=== PATIENT | male | born 1975 | race Caucasian/White ===

== ENCOUNTER 2018-09-15 17:16 | Observation (INO) ==
--- NOTE | 2018-09-15 17:29 | Emergency Department Note ---
ED Disposition Clinical Impression: Abdominal pain Disposition: Still a Patient Condition on Discharge: Fair Instructions: DI for Diarrhea and Traveler's Diarrhea -- Adult, DI for Diarrhea and Traveler's Diarrhea -- Child, DI for Nausea -- Adult, DI for Nausea -- Child - Critical Care Critical Care Time: No Attestation: On , the high probability of a clinically significant, sudden or life threatening deterioration of the following system(s) required my full and direct attention, intervention and personal management. The time I documented below is in addition to time spent performing reported procedures but includes the following listed in this critical care notation. Medical Decision Making - Fernie Inquiry Pt receiving controlled substance: No Fernie was queried for this patient: No Vital Signs: 09/15/18 17:19 Temperature 97.8 F Temperature Source Oral Pulse Rate [Right Brachial] 49 L Respiratory Rate 20 Blood Pressure [Right Arm] 141/84 H Blood Pressure Mean [Right Arm] 103 Blood Pressure Source [Right Arm] Automatic Cuff Blood Pressure Position [Right Arm] Sitting 02 Sat by Pulse Oximetry 99 Oxygen Delivery Method Room Air - Lab Data Lab Results 09/15/18 17:25: WBC 9.8, RBC 5.47, Hgb 15.6, Hct 48.4, MCV 88.4, MCH 28.6, MCHC 32.3, RDW 12.7, Plt Count 209, MPV 7.6, Neut % (Auto) 86.1 H, Lymph % (Auto) 8.1 L, [place] % (Auto) 4.6, Eos % (Auto) 0.8, Baso % (Auto) 0.5, Neut # (Auto) 8.4 H, Lymph # (Auto) 0.8, [place] # (Auto) 0.5, Eos # (Auto) 0.1, Baso # (Auto) 0.1, Total Counted 100, Neutrophils % (Manual) 85 H, Lymphocytes % (Manual) 8 L, Monocytes % (Manual) 5, Eosinophils % (Manual) 2, Platelet Estimate Normal, RBC Morphology Normal 09/15/18 17:25: Sodium 140, Potassium 4.4, Chloride 103, Carbon Dioxide 30, Anion Gap 11.4, BUN 7, Creatinine 0.85, Estimated Creat Clear 141, Estimated GFR 97, Est GFR ( Amer) 118, Glucose 111 H, Calcium 9.9, Total Bilirubin 0.3, AST 28, ALT 39, Alkaline Phosphatase 84, Total Creatine Kinase 101, CK-MB (CK-2) 0.8, CK-MB (CK-2) Rel Index 0.8, Troponin I < 0.02, Total Protein 8.3 H, Albumin 4.3, Globulin 4.0 H, Albumin/Globulin Ratio 1.1, Amylase 66, Lipase 88, Plasma/Serum Alcohol 0 Result diagrams: 09/15/18 17:25 09/15/18 17:25 Orders (Tests/Meds): ED MEDICATIONS Generic Name Dose Route Start Last Admin Trade Name Freq PRN Reason Stop Dose Admin Sodium Chloride 10 ml 09/15/18 17:25 09/15/18 17:42 Saline Flush 10ml Syringe IV 10/15/18 17:24 10 ml NEEDED PRN Administration Maintain IV Site Discontinued Medications Generic Name Dose Route Start Last Admin Trade Name Freq PRN Reason Stop Dose Admin Diatrizoate Meglum/Diatrizoate Sod 30 ml 09/15/18 17:24 09/15/18 17:42 Gastrografin 66%-10% 30ml PO 09/15/18 17:25 30 ml ONCE ONE Administration Famotidine 20 mg 09/15/18 17:25 09/15/18 17:42 Pepcid 20mg/2ml Vial IV 09/15/18 17:26 20 mg ONCE ONE Administration Ioversol 75 ml 09/15/18 18:53 09/15/18 18:54 Rad-Optiray 350 100ml Vial IV 09/15/18 18:54 75 ml ONCE ONE Administration Protocol Morphine Sulfate 2 mg 09/15/18 17:25 09/15/18 17:42 Morphine 2mg/Ml Syringe IV 09/15/18 17:26 2 mg ONCE ONE Administration Ondansetron HCl 4 mg 09/15/18 17:25 09/15/18 17:42 Zofran 4mg/2ml Vial IV 09/15/18 17:26 4 mg ONCE ONE Administration Sodium Chloride 8 ml 09/15/18 17:25 09/15/18 17:42 Saline Flush 10ml Syringe IV 09/15/18 17:26 8 ml ONCE ONE Administration Sodium Chloride 10 ml 09/15/18 18:53 09/15/18 18:54 Rad-Saline Flush 10ml Syringe IV 09/15/18 18:54 10 ml ONCE ONE Administration ORDERS Category Date Time Status CT abdomen pelvis w con Stat Cat Scan 09/15/18 17:24 Taken Drug Screen,Urine Stat Lab 09/15/18 17:23 Ordered Drug Screen,Urine Stat Lab 09/15/18 20:05 Ordered Urinalysis and Microscopic Stat Lab 09/15/18 17:23 Ordered Urinalysis and Microscopic Stat Lab 09/15/18 20:05 Ordered Medical Decision Narrative: Patient remained hemodynamically stable his UA and CT scan reports were pending. Incoming physician Dr. Valero will follow up and make a disposition. Abdominal Pain HPI - General Chief Complaint: Nausea/Vomiting/Diarrhea Stated Complaint: NAUSEA/VOMITING/ABD CRAMPS Time Seen by Provider: 09/15/18 17:26 Mode of Arrival: EMS Source of Information: Patient Limitations: No Limitations - History of Present Illness HPI narrative: 43 years old white male who denies past medical or surgical history. Today at 8 AM, he claims that he started developing mid abdominal cramping pain associated with dry heaving without diarrhea. He denies having chest pain back pain hematemesis coffee-ground emesis melanotic stool or bleeding per rectum. He denies having dysuria hematuria or frequency. He denies having flank pain or hemoptysis. The pain progressively gotten worse was unable to have oral intake and urinated twice. MD complaint: abdominal pain Onset (ago): hour(s) (> 8 hours) Consistency: constant Severity: severe Severity scale (1-10): 10 Quality: cramping Radiation: none Relieving factors: eating Exacerbating factors: nothing Associated symptoms: nausea - Related Data Allergies Allergy/AdvReac Type Severity Reaction Status Date / Time No Known Allergies Allergy Verified 08/20/18 21:44 [facility] History - Hepatitis A Screen Attestation statement:: This patient has been screened for Hepatitis A risk factors. I have reviewed the patient's past medical history: Yes Medical History: Denies:: Cancer, Diabetes Mellitus Type 1, Diabetes Mellitus Type 2, MRSA Amputation: No Fractures: No - Social History Smoking Status: Current every day smoker Tobacco Type: cigarettes # Packs/Day (cigarettes): 1 Alcohol Intake: never Occupational Status: employed Housing: house ROS Obtained: Yes All systems reviewed & no additional complaints Physical Exam - General General appearance: alert, in no apparent distress - Head Head exam: atraumatic, normocephalic, normal inspection - Eye Eye exam: Present: normal appearance, PERRL, EOMI. Absent: scleral icterus, nystagmus - ENT ENT exam: Present: normal exam, normal oropharynx, mucous membranes moist, TM's normal bilaterally, normal external ear exam - Neck Neck exam: Present: normal inspection, full ROM, trachea midline. Absent: tenderness, meningismus, lymphadenopathy - Chest Chest inspection: Present: normal inspection, symmetric chest wall rise. Absent: tenderness - Respiratory Respiratory exam: Present: normal lung sounds bilaterally. Absent: respiratory distress, wheezes - Cardiovascular Cardiovascular exam: Present: regular rate, normal rhythm, normal heart sounds. Absent: JVD - Abdominal Exam Abdominal exam: Present: soft, tenderness, guarding, rigidity, normal bowel sounds, other (Patient had flat abdomen, diffuse abdominal tenderness and voluntary guarding and rigidity.). Absent: distention, rebound, West's sign, tenderness at McBurney's Point - exam: Present: normal inspection, normal testicular lie, circumcised. Absent: testicular tenderness, urethral discharge, scrotal swelling - Extremities Exam Extremities exam: Present: normal inspection, full ROM, normal capillary refill. Absent: tenderness, pedal edema, joint swelling, calf tenderness - Back Exam Back exam: Present: normal inspection. Absent: tenderness, CVA tenderness (R), CVA tenderness (L) - Neurological Exam Neurological exam: Present: alert, oriented X3, CN II-XII intact, motor sensory deficit, reflexes normal - Psychiatric Psychiatric exam: Present: normal affect, normal mood - Skin Skin exam: Present: warm, dry, intact, normal color, other (Scars of prior IV drug use over the left AC. ) - Lymphatic Lymphatic Findings: no adenopathy
[2018-09-15 17:52] LABS: Basophils # 0.1 K/mm3 (0-0.2); Basophils % 0.5 % (0.1-2.0); Eosinophils # 0.1 K/mm3 (0.0-0.4); Eosinophils % 0.8 % (0.1-12.0); Hematocrit 48.4 % (42.0-52.0); Hemoglobin 15.6 g/dL (14.1-18.0); Lymphocytes # 0.8 K/mm3 (0.7-4.5); Lymphocytes % 8.1 % (10-50); Mean Corpuscular HGB Conc 32.3 g/dL (31.8-35.4); Mean Corpuscular Volume 88.4 fl (80-94); Mean Platelet Volume 7.6 fl (7.4-10.4); Monocytes # 0.5 K/mm3 (0.1-1.0); Monocytes % 4.6 % (1.7-9.3); Neutrophils # 8.4 K/mm3 (1.8-7.8); Neutrophils % 86.1 % (37.0-80.0); Platelet Count 209 K/mm3 (142-424); Red Blood Count 5.47 M/mm3 (4.60-6.20); Red Cell Distribution Width 12.7 % (11.5-17.5); White Blood Count 9.8 K/mm3 (4.8-10.8)
[2018-09-15 18:15] LABS: Alanine Aminotransferase 39 U/L (12-78); Albumin Level 4.3 gm/dL (3.4-5.0); Albumin/Globulin Ratio 1.1 (1.1-1.8); Alkaline Phosphatase 84 U/L (46-116); Amylase 66 U/L (25-115); Anion Gap 11.4 mEq/L (5-15); Aspartate Amino Transferase 28 U/L (15-37); Bilirubin,Total 0.3 mg/dL (0.2-1.0); Blood Urea Nitrogen 7 mg/dL (7-18); Calcium 9.9 mg/dL (8.5-10.1); Carbon Dioxide 30 mmol/L (21.0-32.0); Chloride 103 mmol/L (98-107); Creatine Kinase 101 U/L (39-308); Ethyl Alcohol 0 mg/dL (0-99); Glucose 111 mg/dL (74-106); Sodium 140 mmol/L (136-145); Total Protein,Serum 8.3 gm/dL (6.4-8.2)
[2018-09-15 18:22] LABS: Eosinophils % 2 % (0-3); Lymphocytes % 8 % (10-50); Monocytes % 5 % (2-9); Neutrophils % 85 % (42-76); RBC Morphology Normal; Total Cells Counted 100
[2018-09-15 20:58] LABS: Microscopic, Urine URINE MICROSCOPIC (MICROSCOPIC)
[2018-09-15 21:03] LABS: Appearance,Urine CLEAR (Clear); Bilirubin,Urine Negative (Negative); Blood, Urine Negative (Negative); Color,Urine YELLOW (Yellow); Glucose,Urine (UA) Negative (Negative); Ketones,Urine Negative (Negative); Leukocyte Esterase,Urine Negative (Negative); Protein,Urine Negative (Negative); Urobilinogen,Urine 0.2 EU/dl (0.2)
[2018-09-15 21:09] LABS: Amorphous Sediment,Urine Trace /lpf; Amphetamine/Metha Screen,Urine Negative ng/mL (<1000); Barbiturates Screen,Urine Negative ng/mL (<200); Benzodiazepines Screen,Urine Negative ng/mL (<200); Cannabinoid Screen,Urine Positive ng/mL (<50); Cocaine Screen,Urine Negative ng/mL (<300); Methadone Screen,Urine Negative ng/mL (<300); Mucus,Urine 2+ /lpf; Opiate Screen,Urine Positive ng/mL (<300); Phencyclidine Screen,Urine Negative ng/mL (<25)
[2018-09-16 06:30] LABS: Basophils % 0.6 % (0.1-2.0); Eosinophils # 0.3 K/mm3 (0.0-0.4); Eosinophils % 4.8 % (0.1-12.0); Hematocrit 41.4 % (42.0-52.0); Lymphocytes # 1.9 K/mm3 (0.7-4.5); Mean Corpuscular HGB Conc 32.1 g/dL (31.8-35.4); Mean Corpuscular Volume 87.8 fl (80-94); Mean Platelet Volume 7.7 fl (7.4-10.4); Monocytes # 0.4 K/mm3 (0.1-1.0); Monocytes % 6.3 % (1.7-9.3); Neutrophils % 54.3 % (37.0-80.0); Platelet Count 181 K/mm3 (142-424); Red Blood Count 4.71 M/mm3 (4.60-6.20); Red Cell Distribution Width 12.8 % (11.5-17.5); White Blood Count 5.6 K/mm3 (4.8-10.8)
[2018-09-16 06:31] LABS: Hemoglobin 13.3 g/dL (14.1-18.0)
[2018-09-16 06:39] LABS: Anion Gap 11.3 mEq/L (5-15)
[2018-09-16 06:56] LABS: Calcium 8.8 mg/dL (8.5-10.1)
--- NOTE | 2018-09-16 08:51 | History & Physical Report ---
*Admission Date: 09/16/18 *Chief complaint: abdominal pain *History of present illness: Gerardo is a 43-year-old white male who has generally been healthy. He has no history of GI problems. He presented to the emergency room last evening with a approximately 12-hour history of fairly abrupt onset of periumbilical cramping abdominal pain associated with nausea but no vomiting. Throughout the day the pain progressively worsened and he developed persistent diarrhea. No fever. No blood in his stool. He finally presented to the emergency room last evening. Work-up showed relatively normal laboratory data. CT scan of the abdomen however was remarkable for apparent localized ileitis. He was subsequent admitted for bowel rest, IV fluids, and pain management. This morning he is still having fairly persistent periumbilical cramping abdominal pain. His diarrhea has slowed but not resolved. He feels hungry but is also nauseated. No vomiting. [facility] History Medical History: Denies:: Cancer, Diabetes Mellitus Type 1, Diabetes Mellitus Type 2, Gall Bladder Disease, Gastroesophageal Reflux Disease(GERD), Gastrointestinal Bleed, Hiatal Hernia, Kidney Stones, MRSA, Ulcer *Have you ever received a pneumonia vaccine?: No *Have you received a flu vaccine this season?: No (Didn't get it, hasn't had in the past) Other Surgeries: Yes: No Previous Surgery Amputation: No Fractures: No - *Social History Educational Level: Attended High School Smoking Status: Former smoker Tobacco Type: cigarettes # Packs/Day (cigarettes): 1 #Yrs smoked (if former smoker): 20 Smoking End Date: 2016 Alcohol Intake: never Substance Use Type: denies use (But drug screen positive for opiates and marijuana) *Occupational Status:: employed Housing: house Household Members: family *Travel in the last 8 weeks: None - Psychiatric History Expresses thoughts of harming self/others: None Suicide Plan Description: No Plan Family Hx:: Heart Attack Review of Systems - Constitutional Denies body ache(s), Denies fever(s), Denies weight loss - Eyes Denies blurry vision, Denies double vision - ENT Denies difficulty swallowing, Denies hearing loss, Denies nasal congestion - *Cardiovascular Denies chest pain, Denies shortness of breath, Denies leg swelling - *Respiratory Denies chest congestion, Denies cough, Denies shortness of breath - *Gastrointestinal Reports abdominal pain (See HPI) - *Genitourinary Denies difficulty urinating, Denies painful urination, Denies blood in urine - *Musculoskeletal Denies joint pain, Denies joint swelling, Denies body aches - Integumentary/Breasts Denies rash - *Neurologic Denies dizziness - Psychiatric Denies anxiety, Denies depression - Endocrine Denies flushing - Hematologic/Lymphatic Denies easy bruising - Allergic/Immunologic Denies itchy eyes, Denies seasonal runny nose Meds Home Medications Medication Instructions Recorded Confirmed Type No Known Home Medications 09/15/18 09/15/18 History Allergies Allergy/AdvReac Type Severity Reaction Status Date / Time No Known Allergies Allergy Verified 08/20/18 21:44 Exam Vital signs and Labs for Last 24 Hours: Temp Pulse Resp BP Pulse Ox 98.0 F 46 L 16 122/79 99 09/16/18 08:00 09/16/18 08:00 09/16/18 08:00 09/16/18 08:00 09/16/18 08:00 Laboratory Results - last 24 hr 09/15/18 17:25: WBC 9.8, RBC 5.47, Hgb 15.6, Hct 48.4, MCV 88.4, MCH 28.6, MCHC 32.3, RDW 12.7, Plt Count 209, MPV 7.6, Neut % (Auto) 86.1 H, Lymph % (Auto) 8.1 L, Angelina % (Auto) 4.6, Eos % (Auto) 0.8, Baso % (Auto) 0.5, Neut # (Auto) 8.4 H, Lymph # (Auto) 0.8, Angelina # (Auto) 0.5, Eos # (Auto) 0.1, Baso # (Auto) 0.1, Total Counted 100, Neutrophils % (Manual) 85 H, Lymphocytes % (Manual) 8 L, Monocytes % (Manual) 5, Eosinophils % (Manual) 2, Platelet Estimate Normal, RBC Morphology Normal 09/15/18 17:25: Sodium 140, Potassium 4.4, Chloride 103, Carbon Dioxide 30, Anion Gap 11.4, BUN 7, Creatinine 0.85, Estimated Creat Clear 141, Estimated GFR 97, Est GFR ( Amer) 118, Glucose 111 H, Calcium 9.9, Total Bilirubin 0.3, AST 28, ALT 39, Alkaline Phosphatase 84, Total Creatine Kinase 101, CK-MB (CK-2) 0.8, CK-MB (CK-2) Rel Index 0.8, Troponin I < 0.02, Total Protein 8.3 H, Albumin 4.3, Globulin 4.0 H, Albumin/Globulin Ratio 1.1, Amylase 66, Lipase 88, Plasma/Serum Alcohol 0 09/15/18 20:45: Urine Color Yellow, Urine Appearance Clear, Urine pH 6.0, Ur Specific [place] 1.010, Urine Protein Negative, Urine Glucose (UA) Negative, Urine Ketones Negative, Urine Blood Negative, Urine Nitrate Negative, Urine Bilirubin Negative, Urine Urobilinogen 0.2, Ur Leukocyte Esterase Negative, Urine WBC 3-5, Amorphous Sediment Trace, Urine Mucus 2+ 09/15/18 20:45: Urine Opiates Screen Positive H, Urine Methadone Screen Negative, Ur Barbituates Screen Negative, Ur Phencyclidine Scrn Negative, Ur Amphetamines Screen Negative, U Benzodiazepines Scrn Negative, Urine Cocaine Screen Negative, U Marijuana (THC) Screen Positive H 09/16/18 06:10: WBC 5.6 D, RBC 4.71, Hgb 13.3 L D, Hct 41.4 L, MCV 87.8, MCH 28.2, MCHC 32.1, RDW 12.8, Plt Count 181, MPV 7.7, Neut % (Auto) 54.3, Lymph % (Auto) 34.0, Angelina % (Auto) 6.3, Eos % (Auto) 4.8, Baso % (Auto) 0.6, Neut # (Auto) 3.0, Lymph # (Auto) 1.9, Angelina # (Auto) 0.4, Eos # (Auto) 0.3, Baso # (Auto) 0.0 09/16/18 06:10: Sodium 142, Potassium 3.3 L D, Chloride 106, Carbon Dioxide 28, Anion Gap 11.3, BUN 8, Creatinine 0.62 L D, Estimated Creat Clear 172, Estimated GFR 140, Est GFR ( Amer) 170 D, Glucose 103, Calcium 8.8 D I & O for Last 24 hours: Intake & Output 09/13/18 09/14/18 09/15/18 09/16/18 11:59 11:59 11:59 11:59 Intake Total 877 / 877 Balance 877 / 877 Weight 178 lb Narrative: He is lying in bed and appears uncomfortable with his abdominal pain. No acute distress. He is alert and oriented. Color is normal. HEENT shows a cream to be atraumatic and normocephalic. Sclera and conjunctive are clear. Nares patent. Oropharynx show moist mucous membranes. Lungs are clear to auscultation. Heart is regular with no murmurs or ectopy. Abdomen is thin soft and nondistended. Bowel sounds are present but diminished. There is mild to moderate periumbilical and right lower quadrant tenderness. No rebound or guarding. Extremities show no edema. Assessment and Plan (1) Terminal ileitis Current visit: Yes Status: Acute Category: Medical Code(s): K50.00 - Crohn's disease of small intestine without complications - Assessment and plan all Dx Assessment and Plan for all problems:: CT scan is consistent with distal small bowel enteritis or ileitis. This is presumed to be infectious based on his negative GI history. His white blood count remains normal and he is afebrile. He will be started on IV Levaquin e mpirically. We will also add steroids. Continue IV fluids. Will advance to clear liquid diet. Additional work-up and treatment will be as indicated by his hospital course.
--- NOTE | 2018-09-16 10:14 | Pharmacy Consult Notes ---
[facility] Pharmacy VTE Monitoring - Patient Demographics Admission date: 09/16/18 Report Date: 09/16/18 Time: 10:13 Allergies/Adverse Reactions: Patient Allergies No Known Allergies Allergy (Verified 08/20/18 21:44) Height: 1.88 m Weight: 80.739 kg Patient Problems: Current Active Problems (Updated 09/15/18 @ 20:08 by Leia Waterman MD) Abdominal pain (Acute) - VTE Risk Labs: VTE Related Lab Results Hgb 13.3 g/dL (14.1-18.0) L D 09/16/18 06:10 Hct 41.4 % (42.0-52.0) L 09/16/18 06:10 Plt Count 181 K/mm3 (142-424) 09/16/18 06:10 BUN 8 mg/dL (7-18) 09/16/18 06:10 Creatinine 0.62 mg/dL (0.70-1.30) L D 09/16/18 06:10 Estimated Creat Clear 172 mL/min (50-200) 09/16/18 06:10 VTE Score: 1 VTE Risk Level: Very Low Risk - Prophylaxis Types of VTE Prophylaxis: TEDS Knee High (GEREMIAS HOSE ORDER PLACED)
--- NOTE | 2018-09-17 08:18 | Progress Note ---
Internal Medicine - PN: Subj *Date: 09/17/18 *Time: 08:15 Interval history: Feels a little better. Still with stomach cramps but only had 2 diarrhea stools yesterday. Did not collect stool sample. Tolerating clear liquids. Exam Vital signs and Labs for Last 24 Hours: Temp Pulse Resp BP Pulse Ox 98.1 F 50 L 17 144/75 H 97 09/17/18 07:18 09/17/18 07:18 09/17/18 07:18 09/17/18 07:18 09/17/18 07:18 I & O for Last 24 hours: Intake & Output 09/14/18 09/15/18 09/16/18 09/17/18 11:59 11:59 11:59 11:59 Intake Total 1027 / 1027 3498 / 3498 Balance 1027 / 1027 3498 / 3498 Weight 178 lb 185 lb 3 oz - Constitutional no acute distress - *Routine Respiratory Exam Present: CTA bilaterally - *Routine Cardiovascular Exam Present: RRR - *Routine Abdominal Exam Present: soft. Absent: distended (BS present, mild RLQ tenderness) Assessment and Plan (1) Terminal ileitis Current visit: Yes Status: Acute Category: Medical Code(s): K50.00 - Crohn's disease of small intestine without complications - Assessment and plan all Dx Assessment and Plan for all problems:: Clinically improved. Still awaiting stool sample. Will advance diet.
--- NOTE | 2018-09-18 08:43 | Progress Note ---
<Farrah Wang - Last Filed: 09/18/18 08:40> Internal Medicine - PN: Subj *Date: 09/18/18 *Time: 07:55 Interval history: Pt is not feeling well this morning. He reports nausea and "dry heaves" for most of the night and is currently sitting up in bed holding emesis bag. He describes generalized abdominal cramping, moreso in the bilateral lower quads. He denies any diarrhea or loose stools. Exam Vital signs and Labs for Last 24 Hours: Temp Pulse Resp BP Pulse Ox 98.0 F 50 L 15 145/75 H 98 09/18/18 07:40 09/18/18 07:40 09/18/18 07:40 09/18/18 07:40 09/18/18 07:40 I & O for Last 24 hours: Intake & Output 09/15/18 09/16/18 09/17/18 09/18/18 11:59 11:59 11:59 11:59 Intake Total 1027 / 1027 3498 / 3498 3427 / 3427 Balance 1027 / 1027 3498 / 3498 3427 / 3427 Weight 178 lb 185 lb 3 oz 179 lb - Constitutional Comments: NAD, appears uncomfortable as he is sitting up in bed holding emesis bag - *Routine HEENT Exam Head: Present: normocephalic ENT: Present: mucous membranes moist - *Routine Respiratory Exam Comments: CTAB A&P - *Routine Cardiovascular Exam Present: RRR - *Routine Abdominal Exam Comments: BS present x 4, soft, diffusely ttp throughout - *Routine Extremities Exam Present: full ROM, pulses intact, calf tenderness. Absent: edema - *Routine Neurological Exam Present: alert, oriented X3, moving all extremities, normal speech Assessment and Plan (1) Terminal ileitis Current visit: Yes Status: Acute Category: Medical Code(s): K50.00 - Crohn's disease of small intestine without complications - Assessment and plan all Dx Assessment and Plan for all problems:: Further per Dr. Sevilla. <Duncan Sevilla - Last Filed: 09/18/18 13:59> Internal Medicine - PN: Subj *Date: 09/18/18 *Time: 13:57 Exam Vital signs and Labs for Last 24 Hours: Temp Pulse Resp BP Pulse Ox 98.0 F 50 L 15 145/75 H 98 09/18/18 07:40 09/18/18 07:40 09/18/18 07:40 09/18/18 07:40 09/18/18 07:40 Laboratory Results - last 24 hr 09/18/18 09:20: WBC 15.1 H D, RBC 5.02, Hgb 14.2, Hct 44.0, MCV 87.5, MCH 28.3, MCHC 32.3, RDW 12.9, Plt Count 198, MPV 7.4, Neut % (Auto) 91.1 H, Lymph % (Auto) 5.5 L, [place] % (Auto) 3.4, Eos % (Auto) 0.1, Baso % (Auto) 0.0 L, Neut # (Auto) 13.8 H, Lymph # (Auto) 0.8, [place] # (Auto) 0.5, Eos # (Auto) 0.0, Baso # (Auto) 0.0 09/18/18 09:20: Sodium 141, Potassium 4.5 D, Chloride 103, Carbon Dioxide 29, Anion Gap 13.5, BUN 14 D, Creatinine 0.80 D, Estimated Creat Clear 134, Estimated GFR 105, Est GFR ( Amer) 126 D, Glucose 141 H, Calcium 9.4, Total Bilirubin 0.3, AST 20 D, ALT 30, Alkaline Phosphatase 69, Total Protein 7.1, Albumin 3.6, Globulin 3.5 H, Albumin/Globulin Ratio 1.0 L, Amylase 39 I & O for Last 24 hours: Intake & Output 09/16/18 09/17/18 09/18/18 09/19/18 11:59 11:59 11:59 11:59 Intake Total 1027 / 1027 3648 / 3648 3427 / 3427 Balance 1027 / 1027 3648 / 3648 3427 / 3427 Weight 178 lb 185 lb 3 oz 179 lb Assessment and Plan (1) Terminal ileitis Current visit: Yes Status: Acute Category: Medical Code(s): K50.00 - C rohn's disease of small intestine without complications - Assessment and plan all Dx Assessment and Plan for all problems:: Patient seen and examined this AM. Will repeat labs and CT scan today. NPO for now
[2018-09-18 09:48] LABS: Albumin Level 3.6 gm/dL (3.4-5.0); Anion Gap 13.5 mEq/L (5-15); Bilirubin,Total 0.3 mg/dL (0.2-1.0); Calcium 9.4 mg/dL (8.5-10.1); Globulin 3.5 gm/dl (1.3-3.2); Total Protein,Serum 7.1 gm/dL (6.4-8.2)
[2018-09-18 10:23] LABS: Eosinophils % 0.1 % (0.1-12.0); Hemoglobin 14.2 g/dL (14.1-18.0); Lymphocytes # 0.8 K/mm3 (0.7-4.5); Lymphocytes % 5.5 % (10-50); Mean Corpuscular HGB Conc 32.3 g/dL (31.8-35.4); Mean Corpuscular Volume 87.5 fl (80-94); Mean Platelet Volume 7.4 fl (7.4-10.4); Monocytes # 0.5 K/mm3 (0.1-1.0); Monocytes % 3.4 % (1.7-9.3); Neutrophils # 13.8 K/mm3 (1.8-7.8); Neutrophils % 91.1 % (37.0-80.0); Platelet Count 198 K/mm3 (142-424); Red Blood Count 5.02 M/mm3 (4.60-6.20); Red Cell Distribution Width 12.9 % (11.5-17.5); White Blood Count 15.1 K/mm3 (4.8-10.8)
[2018-09-18 16:12] LABS: Lymphocytes % 7 % (10-50); Monocytes % 1 % (2-9); Neutrophils % 92 % (42-76); Total Cells Counted 100
[2018-09-18 16:13] LABS: RBC Morphology Normal
[2018-09-19 06:25] LABS: Basophils % 0.1 % (0.1-2.0); Eosinophils % 0.1 % (0.1-12.0); Hematocrit 41.9 % (42.0-52.0); Hemoglobin 13.6 g/dL (14.1-18.0); Lymphocytes # 2.6 K/mm3 (0.7-4.5); Lymphocytes % 22.4 % (10-50); Mean Corpuscular HGB Conc 32.5 g/dL (31.8-35.4); Mean Corpuscular Volume 86.5 fl (80-94); Mean Platelet Volume 7.8 fl (7.4-10.4); Monocytes # 0.6 K/mm3 (0.1-1.0); Monocytes % 5.3 % (1.7-9.3); Neutrophils # 8.3 K/mm3 (1.8-7.8); Neutrophils % 72.1 % (37.0-80.0); Platelet Count 194 K/mm3 (142-424); Red Blood Count 4.85 M/mm3 (4.60-6.20); Red Cell Distribution Width 12.9 % (11.5-17.5); White Blood Count 11.5 K/mm3 (4.8-10.8)
--- NOTE | 2018-09-19 08:09 | Progress Note ---
<Xiao Whitaker - Last Filed: 09/19/18 08:05> Internal Medicine - PN: Subj *Date: 09/19/18 *Time: 08:05 Interval history: Patient states he is not feeling well this morning. He still has diffuse abdominal pain that is worse in the bilateral lower quadrants. He has been unable to eat anything due to nausea. He has not vomited since yesterday. He states he did not rest well and is requiring regular doses of Dilaudid. Exam Vital signs and Labs for Last 24 Hours: Temp Pulse Resp BP Pulse Ox 97.9 F 51 L 18 104/54 L 97 09/19/18 07:59 09/19/18 07:59 09/19/18 07:59 09/19/18 07:59 09/19/18 07:59 Laboratory Results - last 24 hr 09/18/18 09:20: WBC 15.1 H D, RBC 5.02, Hgb 14.2, Hct 44.0, MCV 87.5, MCH 28.3, MCHC 32.3, RDW 12.9, Plt Count 198, MPV 7.4, Neut % (Auto) 91.1 H, Lymph % (Auto) 5.5 L, Long % (Auto) 3.4, Eos % (Auto) 0.1, Baso % (Auto) 0.0 L, Neut # (Auto) 13.8 H, Lymph # (Auto) 0.8, Long # (Auto) 0.5, Eos # (Auto) 0.0, Baso # (Auto) 0.0, Total Counted 100, Neutrophils % (Manual) 92 H, Lymphocytes % (Manual) 7 L, Monocytes % (Manual) 1 L, Platelet Estimate Normal, RBC Morphology Normal 09/18/18 09:20: Sodium 141, Potassium 4.5 D, Chloride 103, Carbon Dioxide 29, Anion Gap 13.5, BUN 14 D, Creatinine 0.80 D, Estimated Creat Clear 134, Estimated GFR 105, Est GFR ( Amer) 126 D, Glucose 141 H, Calcium 9.4, Total Bilirubin 0.3, AST 20 D, ALT 30, Alkaline Phosphatase 69, Total Protein 7.1, Albumin 3.6, Globulin 3.5 H, Albumin/Globulin Ratio 1.0 L, Amylase 39 09/19/18 06:00: WBC 11.5 H, RBC 4.85, Hgb 13.6 L, Hct 41.9 L, MCV 86.5, MCH 28.1, MCHC 32.5, RDW 12.9, Plt Count 194, MPV 7.8, Neut % (Auto) 72.1, Lymph % (Auto) 22.4, Long % (Auto) 5.3, Eos % (Auto) 0.1, Baso % (Auto) 0.1, Neut # (Auto) 8.3 H, Lymph # (Auto) 2.6, Long # (Auto) 0.6, Eos # (Auto) 0.0, Baso # (Auto) 0.0 I & O for Last 24 hours: Intake & Output 09/16/18 09/17/18 09/18/18 09/19/18 11:59 11:59 11:59 11:59 Intake Total 1027 / 1027 3648 / 3648 3427 / 3427 810 / 810 Balance 1027 / 1027 3648 / 3648 3427 / 3427 810 / 810 Weight 178 lb 185 lb 3 oz 179 lb 177 lb 3 oz Radiology Reports for the Last 24 Hours: Gallbladder ultrasound relatively unremarkable - Constitutional no acute distress - *Routine Respiratory Exam Present: CTA bilaterally - *Routine Cardiovascular Exam Present: RRR - *Routine Abdominal Exam Present: soft, tenderness (diffuse) - *Routine Extremities Exam Absent: cyanosis, clubbing, edema - *Routine Skin Exam Present: warm. Absent: rash - *Routine Neurological Exam Present: alert, oriented X3 Assessment and Plan (1) Terminal ileitis Current visit: Yes Status: Acute Category: Medical Code(s): K50.00 - Crohn's disease of small intestine without complications - Assessment and plan all Dx Assessment and Plan for all problems:: Gallbladder ultrasound was unremarkable. Will discuss further care with Dr. Sevilla. <Duncan Sevilla - Last Filed: 09/19/18 08:51> Internal Medicine - PN: Subj *Date: 09/19/18 *Time: 08:44 Exam Vital signs and Labs for Last 24 Hours: Temp Pulse Resp BP Pulse Ox 97.9 F 51 L 18 104/54 L 97 09/19/18 07:59 09/19/18 07:59 09/19/18 07:59 09/19/18 07:59 09/19/18 07:59 Laboratory Results - last 24 hr 09/18/18 09:20: WBC 15.1 H D, RBC 5.02, Hgb 14.2, Hct 44.0, MCV 87.5, MCH 28.3, MCHC 32.3, RDW 12.9, Plt Count 198, MPV 7.4, Neut % (Auto) 91.1 H, Lymph % (Auto) 5.5 L, Long % (Auto) 3.4, Eos % (Auto) 0.1, Baso % (Auto) 0.0 L, Neut # (Auto) 13.8 H, Lymph # (Auto) 0.8, Long # (Auto) 0.5, Eos # (Auto) 0.0, Baso # (Auto) 0.0, Total Counted 100, Neutrophils % (Manual) 92 H, Lymphocytes % (Manual) 7 L, Monocytes % (Manual) 1 L, Platelet Estimate Normal, RBC Morphology Normal 09/18/18 09:20: Sodium 141, Potassium 4.5 D, Chloride 103, Carbon Dioxide 29, Anion Gap 13.5, BUN 14 D, Creatinine 0.80 D, Estimated Creat Clear 134, Estimated GFR 105, Est GFR ( Amer) 126 D, Glucose 141 H, Calcium 9.4, Total Bilirubin 0.3, AST 20 D, ALT 30, Alkaline Phosphatase 69, Total Protein 7.1, Albumin 3.6, Globulin 3.5 H, Albumin/Globulin Ratio 1.0 L, Amylase 39 09/19/18 06:00: WBC 11.5 H, RBC 4.85, Hgb 13.6 L, Hct 41.9 L, MCV 86.5, MCH 28.1, MCHC 32.5, RDW 12.9, Plt Count 194, MPV 7.8, Neut % (Auto) 72.1, Lymph % (Auto) 22.4, Long % (Auto) 5.3, Eos % (Auto) 0.1, Baso % (Auto) 0.1, Neut # (Auto) 8.3 H, Lymph # (Auto) 2.6, Long # (Auto) 0.6, Eos # (Auto) 0.0, Baso # (Auto) 0.0 I & O for Last 24 hours: Intake & Output 07/09/17/18 09/18/18 09/19/18 11:59 11:59 11:59 11:59 Intake Total 1027 / 1027 3648 / 3648 3427 / 3427 810 / 810 Balance 1027 / 1027 3648 / 3648 3427 / 3427 810 / 810 Weight 178 lb 185 lb 3 oz 179 lb 177 lb 3 oz Assessment and Plan (1) Terminal ileitis Current visit: Yes Status: Acute Category: Medical Code(s): K50.00 - Crohn's disease of small intestine without complications - Assessment and plan all Dx Assessment and Plan for all problems:: Etiology of his persistent pain and nausea is not clear. His CT is improved. GB US is normal. WBC is down. He is less nauseated and actually feels hungry. He has tolerated a few liquids. He is still having a fair amount of pain mostly in lower quadrants. He has passed a small amount of flatus but no stool. Will add Protonix and consult surgery for additional evaluation and recommendations
--- NOTE | 2018-09-19 09:59 | Consult Report ---
*Admission Date: 09/16/18 *Reason for consult:: Abdominal pain *History of present illness: Patient is a 43-year-old white male. He states that a couple weeks ago he had had onset of abdominal pain described as cramping and sharp and presented to the emergency department. At that time he was diagnosed with a "heat stroke". He had similar symptoms occur which were quite severe this past Monday, 5 days a go, on 09/15/2018. He presented to the emergency department at which time he was seen and evaluated. He underwent CT scan with IV and oral contrast which revealed findings of some thickening of the distal small bowel consistent with ileitis. He was admitted for inpatient management. He was treated medically with supportive care with IV fluids, antiemetics, pain medication, and intravenous antibiotics. His diet was advanced and he had developed recurrent subjective symptoms of abdominal pain. He underwent gallbladder ultrasound which was negative for gallstones. He underwent repeat CT scan yesterday once again with IV and oral contrast. This reveals no acute process with resolution of the thickening and distention of the small bowel with contrast through to the colon. Surgical consultation was obtained today. Review of Systems - Review of Systems Review of systems:: pertinent systems reviewed and negative unless documented below - *Neurologic Denies dizziness [facility] History Medical History: Denies:: Cancer, Diabetes Mellitus Type 1, Diabetes Mellitus Type 2, Gall Bladder Disease, Gastroesophageal Reflux Disease(GERD), Gastrointestinal Bleed, Hiatal Hernia, Kidney Stones, MRSA, Ulcer *Have you ever received a pneumonia vaccine?: No *Have you received a flu vaccine this season?: No (Didn't get it, hasn't had in the past) Other Surgeries: Yes: No Previous Surgery Amputation: No Fractures: No - *Social History Educational Level: Attended High School Smoking Status: Former smoker Tobacco Type: cigarettes # Packs/Day (cigarettes): 1 #Yrs smoked (if former smoker): 20 Smoking End Date: 2016 Alcohol Intake: never Substance Use Type: denies use (But drug screen positive for opiates and marijuana) *Occupational Status:: employed Housing: house Household Members: family *Travel in the last 8 weeks: None - Psychiatric History Expresses thoughts of harming self/others: None Suicide Plan Description: No Plan Family Hx:: Heart Attack Meds Home Medications Medication Instructions Recorded Confirmed Type No Known Home Medications 09/15/18 09/15/18 History Allergies Allergy/AdvReac Type Severity Reaction Status Date / Time No Known Allergies Allergy Verified 08/20/18 21:44 Exam Vital signs and Labs for Last 24 Hours: Temp Pulse Resp BP Pulse Ox 97.9 F 51 L 18 104/54 L 97 09/19/18 07:59 09/19/18 07:59 09/19/18 07:59 09/19/18 07:59 09/19/18 07:59 Laboratory Results - last 24 hr 09/18/18 09:20: WBC 15.1 H D, RBC 5.02, Hgb 14.2, Hct 44.0, MCV 87.5, MCH 28.3, MCHC 32.3, RDW 12.9, Plt Count 198, MPV 7.4, Neut % (Auto) 91.1 H, Lymph % (Auto) 5.5 L, [place] % (Auto) 3.4, Eos % (Auto) 0.1, Baso % (Auto) 0.0 L, Neut # (Auto) 13.8 H, Lymph # (Auto) 0.8, [place] # (Auto) 0.5, Eos # (Auto) 0.0, Baso # (Auto) 0.0, Total Counted 100, Neutrophils % (Manual) 92 H, Lymphocytes % (Manual) 7 L, Monocytes % (Manual) 1 L, Platelet Estimate Normal, RBC Morphology Normal 09/19/18 06:00: WBC 11.5 H, RBC 4.85, Hgb 13.6 L, Hct 41.9 L, MCV 86.5, MCH 28.1, MCHC 32.5, RDW 12.9, Plt Count 194, MPV 7.8, Neut % (Auto) 72.1, Lymph % (Auto) 22.4, [place] % (Auto) 5.3, Eos % (Auto) 0.1, Baso % (Auto) 0.1, Neut # (Auto) 8.3 H, Lymph # (Auto) 2.6, [place] # (Auto) 0.6, Eos # (Auto) 0.0, Baso # (Auto) 0.0 I & O for Last 24 hours: Intake & Output 09/16/18 09/17/18 09/18/18 09/19/18 11:59 11:59 11:59 11:59 Intake Total 1027 / 1027 3648 / 3648 3577 / 3577 810 / 810 Balance 1026 / 1027 3648 / 3648 3577 / 3577 810 / 810 Weight 178 lb 185 lb 3 oz 179 lb 177 lb 3 oz - *Routine HEENT Exam Head: Present: normocephalic Eye: Present: EOMI, PERRL ENT: Present: mucous membranes moist - *Routine Neck Exam Present: supple. Absent: lymphadenopathy - *Routine Respiratory Exam Present: CTA bilaterally - *Routine Cardiovascular Exam Present: RRR - *Routine Abdominal Exam Present: soft, tenderness Comments: His abdomen is nondistended and soft. He has some slightly hyperactive bowel sounds. He has subjective tenderness without guarding or rebound. - *Routine Extremities Exam Absent: cyanosis, clubbing, edema - *Routine Skin Exam Present: warm. Absent: rash - *Routine Neurological Exam Present: alert, oriented X3 - Detailed Eye Exam Eyelids: Left normal inspection Results - Labs 09/19/18 06:00 09/18/18 09:20 Laboratory Results - last 24 hr 09/18/18 09:20: WBC 15.1 H D, RBC 5.02, Hgb 14.2, Hct 44.0, MCV 87.5, MCH 28.3, MCHC 32.3, RDW 12.9, Plt Count 198, MPV 7.4, Neut % (Auto) 91.1 H, Lymph % (Auto) 5.5 L, [place] % (Auto) 3.4, Eos % (Auto) 0.1, Baso % (Auto) 0.0 L, Neut # (Auto) 13.8 H, Lymph # (Auto) 0.8, [place] # (Auto) 0.5, Eos # (Auto) 0.0, Baso # (Auto) 0.0, Total Counted 100, Neutrophils % (Manual) 92 H, Lymphocytes % (Manual) 7 L, Monocytes % (Manual) 1 L, Platelet Estimate Normal, RBC Morphology Normal 09/19/18 06:00: WBC 11.5 H, RBC 4.85, Hgb 13.6 L, Hct 41.9 L, MCV 86.5, MCH 28.1, MCHC 32.5, RDW 12.9, Plt Count 194, MPV 7.8, Neut % (Auto) 72.1, Lymph % (Auto) 22.4, [place] % (Auto) 5.3, Eos % (Auto) 0.1, Baso % (Auto) 0.1, Neut # (Auto) 8.3 H, Lymph # (Auto) 2.6, [place] # (Auto) 0.6, Eos # (Auto) 0.0, Baso # (Auto) 0.0 Assessment and Plan (1) Terminal ileitis Current visit: Yes Status: Acute Category: Medical Code(s): K50.00 - Crohn's disease of small intestine without complications - Assessment and plan all Dx Assessment and Plan for all problems:: Unclear as to the etiology of his symptoms. This may be resolving nonspecific small bowel inflammation versus infectious etiology. Radiographic evidence has shown resolution of the previously noted process. No surgical recommendations at this time. May require gastroenterology evaluation.
--- NOTE | 2018-09-19 10:13 | Progress Note ---
Internal Medicine - PN: Subj *Date: 09/19/18 *Time: 10:12 Exam Vital signs and Labs for Last 24 Hours: Temp Pulse Resp BP Pulse Ox 97.9 F 51 L 18 104/54 L 97 09/19/18 07:59 09/19/18 07:59 09/19/18 07:59 09/19/18 07:59 09/19/18 07:59 Laboratory Results - last 24 hr 09/18/18 09:20: WBC 15.1 H D, RBC 5.02, Hgb 14.2, Hct 44.0, MCV 87.5, MCH 28.3, MCHC 32.3, RDW 12.9, Plt Count 198, MPV 7.4, Neut % (Auto) 91.1 H, Lymph % (Auto) 5.5 L, [place] % (Auto) 3.4, Eos % (Auto) 0.1, Baso % (Auto) 0.0 L, Neut # (Auto) 13.8 H, Lymph # (Auto) 0.8, [place] # (Auto) 0.5, Eos # (Auto) 0.0, Baso # (Auto) 0.0, Total Counted 100, Neutrophils % (Manual) 92 H, Lymphocytes % (Manual) 7 L, Monocytes % (Manual) 1 L, Platelet Estimate Normal, RBC Morphology Normal 09/19/18 06:00: WBC 11.5 H, RBC 4.85, Hgb 13.6 L, Hct 41.9 L, MCV 86.5, MCH 28.1, MCHC 32.5, RDW 12.9, Plt Count 194, MPV 7.8, Neut % (Auto) 72.1, Lymph % (Auto) 22.4, [place] % (Auto) 5.3, Eos % (Auto) 0.1, Baso % (Auto) 0.1, Neut # (Auto) 8.3 H, Lymph # (Auto) 2.6, [place] # (Auto) 0.6, Eos # (Auto) 0.0, Baso # (Auto) 0.0 I & O for Last 24 hours: Intake & Output 09/16/18 09/17/18 09/18/18 09/19/18 23:59 23:59 23:59 23:59 Intake Total 3360 / 3360 3904 / 3904 988 / 988 810 / 810 Balance 3360 / 3360 3904 / 3904 988 / 988 810 / 810 Weight 84 kg 81.193 kg 80.371 kg Assessment and Plan (1) Terminal ileitis Current visit: Yes Status: Acute Category: Medical Code(s): K50.00 - Crohn's disease of small intestine without complications The patient's infection will respond to the chosen ABx?: Yes Is the patient receiving the right drug, dose, and route?: Yes Could a more targeted ABx be ordered?: No (NO CULTURES, WBS NORMALIZED)
[2018-09-20 06:19] LABS: Basophils % 0.2 % (0.1-2.0); Eosinophils # 0.1 K/mm3 (0.0-0.4); Eosinophils % 1.9 % (0.1-12.0); Hematocrit 40.3 % (42.0-52.0); Lymphocytes # 2.4 K/mm3 (0.7-4.5); Lymphocytes % 42.8 % (10-50); Mean Corpuscular HGB Conc 32.3 g/dL (31.8-35.4); Mean Corpuscular Volume 86.8 fl (80-94); Mean Platelet Volume 7.3 fl (7.4-10.4); Monocytes # 0.4 K/mm3 (0.1-1.0); Monocytes % 7.4 % (1.7-9.3); Neutrophils # 2.6 K/mm3 (1.8-7.8); Neutrophils % 47.7 % (37.0-80.0); Platelet Count 167 K/mm3 (142-424); Red Blood Count 4.64 M/mm3 (4.60-6.20); Red Cell Distribution Width 12.7 % (11.5-17.5); White Blood Count 5.5 K/mm3 (4.8-10.8)
--- NOTE | 2018-09-20 08:14 | Progress Note ---
<Xiao Whitaker - Last Filed: 09/20/18 08:12> Internal Medicine - PN: Subj *Date: 09/20/18 *Time: 08:12 Interval history: Patient is feeling better today. He denies any abdominal pain and states he was able to tolerate felt well this morning. He did not rest well last night and is anxious to go home. Exam Vital signs and Labs for Last 24 Hours: Temp Pulse Resp BP Pulse Ox 98.1 F 53 L 17 112/53 L 99 09/20/18 07:38 09/20/18 07:38 09/20/18 07:38 09/20/18 07:38 09/20/18 07:38 Laboratory Results - last 24 hr 09/20/18 05:28: WBC 5.5 D, RBC 4.64, Hgb 13.0 L, Hct 40.3 L, MCV 86.8, MCH 28.1, MCHC 32.3, RDW 12.7, Plt Count 167, MPV 7.3 L, Neut % (Auto) 47.7, Lymph % (Auto) 42.8, [place] % (Auto) 7.4, Eos % (Auto) 1.9, Baso % (Auto) 0.2, Neut # (Auto) 2.6, Lymph # (Auto) 2.4, [place] # (Auto) 0.4, Eos # (Auto) 0.1, Baso # (Auto) 0.0 I & O for Last 24 hours: Intake & Output 09/17/18 09/18/18 09/19/18 09/20/18 11:59 11:59 11:59 11:59 Intake Total 3648 / 3648 3577 / 3577 810 / 810 3748 / 3748 Balance 3648 / 3648 3577 / 3577 810 / 810 3748 / 3748 Weight 185 lb 3 oz 179 lb 177 lb 3 oz 179 lb 4 oz - Constitutional no acute distress - *Routine Respiratory Exam Present: CTA bilaterally - *Routine Cardiovascular Exam Present: RRR - *Routine Abdominal Exam Present: soft, normoactive bowel sounds. Absent: tenderness - *Routine Extremities Exam Absent: cyanosis, clubbing, edema - *Routine Skin Exam Present: warm. Absent: rash - *Routine Neurological Exam Present: alert, oriented X3 Assessment and Plan (1) Terminal ileitis Status: Acute Category: Medical Code(s): K50.00 - Crohn's disease of small intestine without complications - Assessment and plan all Dx Assessment and Plan for all problems:: Patient is stable to be discharged today on continued antibiotics, Zofran, and Levsin. He will need to follow-up on an outpatient basis with Dr. Brooks and will likely need a scope. <Duncan Sevilla - Last Filed: 10/27/18 08:42> Internal Medicine - PN: Subj *Date: 10/27/18 *Time: 08:42 Exam Vital signs and Labs for Last 24 Hours: Temp Pulse Resp BP Pulse Ox 98.1 F 53 L 17 112/53 L 99 09/20/18 07:38 09/20/18 07:38 09/20/18 07:38 09/20/18 07:38 09/20/18 07:38 Assessment and Plan (1) Terminal ileitis Status: Acute Category: Medical Code(s): K50.00 - Crohn's disease of small intestine without complications - Assessment and plan all Dx Assessment and Plan for all problems:: Patient seen and agree.
--- NOTE | 2018-09-20 08:25 | Discharge Summary ---
General - General Admission date:: 09/15/18 <Duncan Sevilla - 10/27/18 08:45> 09/15/18 <LeeroyXiao davidson - 09/20/18 08:28> Discharge date: 09/20/18 <LeeroyJacob davidsona - 09/20/18 08:28> HPI HPI: Gerardo is a 43-year-old white male who has generally been healthy. He has no history of GI problems. He presented to the emergency room with an approximately 12-hour history of fairly abrupt onset of periumbilical cramping abdominal pain associated with nausea but no vomiting. Throughout the day the pain progressively worsened and he developed persistent diarrhea. No fever. No blood in his stool. He finally presented to the emergency room. Work-up showed relatively normal laboratory data. CT scan of the abdomen however was remarkable for apparent localized ileitis. He was subsequent admitted for bowel rest, IV fluids, and pain management. <JulianneXiao - 09/20/18 08:28> Hospital Course Hospital Course: The patient was started on IV Levaquin empirically and steroids were added as well. He was continued on IV fluids and his diet was advanced to clear liquid diet. His diarrhea resolved and his nurse was unable to get a diarrhea panel. On 09/15/2018 the patient began feeling worse. He had nausea and dry heaves and generalized abdominal cramping. He had a repeat CT which showed significant improvement in the small bowel inflammation and ileitis. There were no other acute findings. His intrahepatic biliary ducts were upper normal limits but there were no calcified gallstones seen. His liver function tests and amylase were normal. His white blood cell count did elevate, but it was felt to be due to steroids. A right upper quadrant ultrasound was ordered and Reglan was added to his medication regimen. He did not feel Phenergan was helping with his nausea, therefore Zofran was ordered. He was switched from morphine to Dilaudid for pain control and his steroids were discontinued. He continued with abdominal pain and was unable to eat. His white blood cell count did improve and his vomiting resolved, but he remained nauseated. Protonix was added and surgery was consulted. Dr. Noriega saw the patient and felt there was nothing surgical to be done and he should see GI. By 09/20/2018 the patient was feeling much better. He had no abdominal pain and was tolerating a diet. He was anxious to go home. His white blood cell count normalized and he was stable to be discharged home on continued antibiotics, Zofran, and Levsin. He will need to see Dr. Brooks on an outpat ient follow-up and will likely need a scope. <Xiao Whitaker - 09/20/18 08:28> Objective Vital signs: Temp Pulse Resp BP Pulse Ox 98.1 F 53 L 17 112/53 L 99 09/20/18 07:38 09/20/18 07:38 09/20/18 07:38 09/20/18 07:38 09/20/18 07:38 <RoelDuncan cummings - 10/27/18 08:45> Temp Pulse Resp BP Pulse Ox 98.1 F 53 L 17 112/53 L 99 09/20/18 07:38 09/20/18 07:38 09/20/18 07:38 09/20/18 07:38 09/20/18 07:38 <Xiao Whitaker - 09/20/18 08:28> Narrative: - Constitutional no acute distress - *Routine Respiratory Exam Present: CTA bilaterally - *Routine Cardiovascular Exam Present: RRR - *Routine Abdominal Exam Present: soft, normoactive bowel sounds. Absent: tenderness - *Routine Extremities Exam Absent: cyanosis, clubbing, edema - *Routine Skin Exam Present: warm. Absent: rash - *Routine Neurological Exam Present: alert, oriented X3 <Xiao Whitaker - 09/20/18 08:28> Results Labs on day of discharge: Labs from last 24 hours 09/20/18 05:28 WBC 5.5 D RBC 4.64 Hgb 13.0 L Hct 40.3 L MCV 86.8 MCH 28.1 MCHC 32.3 RDW 12.7 Plt Count 167 MPV 7.3 L Neut % (Auto) 47.7 Lymph % (Auto) 42.8 [place] % (Auto) 7.4 Eos % (Auto) 1.9 Baso % (Auto) 0.2 Neut # (Auto) 2.6 Lymph # (Auto) 2.4 [place] # (Auto) 0.4 Eos # (Auto) 0.1 Baso # (Auto) 0.0 <Xiao Whitaker - 09/20/18 08:28> DS: Diagnosis - Discharge Diagnosis (1) Terminal ileitis Status: Acute <JulianneXiao - 09/20/18 08:20> (1) Terminal ileitis Status: Acute <Duncan Sevilla - 10/27/18 08:45> Discharge Plan - Patient Discharge Instructions Patient Instructions: DI for Abdominal Pain-Adult <Duncan Sevilla - 10/27/18 08:45> Forms: <Duncan Sevilla - 10/27/18 08:45> - Follow up Plan Follow up with: Lucio Flores [Referring] - 09/25/18 10:00 am ([facility] [address]) <Duncan Sevilla - 10/27/18 08:45> Disposition: Home, Self-Care <Duncan Sevilla - 10/27/18 08:45> Home Medications: Home Medications Medication Instructions Recorded Confirmed Type predniSONE [Prednisone 5mg Tab 5 mg PO UD DOSE PK 12 Days #48 pack 09/29/18 Rx Dose-Pack] <Duncan Seivlla - 10/27/18 08:45> Prescriptions/Medication Reconciliation: No Action predniSONE [Prednisone 5mg Tab Dose-Pack] 5 mg PO UD DOSE PK 12 Days #48 pack <Duncan Sevilla - 10/27/18 08:45> - Problem Reconciliation Problems Reviewed?: Yes <Duncan Sevilla - 10/27/18 08:45> - Additional Information Additional Information: Patient seen and examined. Concur with assessment and plan for discharge. <Duncan Sevilla - 10/27/18 08:45>
== END 2018-09-20 09:32 | disposition home or self-care (01) ==
LOC: ER 17:16 → 2ND 17:16
PROVIDERS: ADMIT Family Medicine; ATTEND Family Medicine
CPT/HCPCS: 36415; 74177; 74178; 76700; 80048; 80053; 80305; 81001; 82150; 82550; 82553; 83690; 84484; 85007; 85025; 96374; 96375; 99284; G0378; J1956; J2405; Q9967

== ENCOUNTER 2019-07-27 17:57 | Emergency (ER) | payer SELFPAY ==
[2019-07-27 18:15] VITALS: BP 104/67; PULSE 71; RESP 16; TEMP 36.6; O2SAT 98; BMI 26.4
--- NOTE | 2019-07-27 18:15 | HMH.EDGENADL ---
ED Disposition Clinical Impression: Perichondritis of auricle Qualifiers: Laterality: left Qualified Code(s): H61.002 - Unspecified perichondritis of left external ear Disposition: Home, Self-Care Condition on Discharge: Fair Additional Instructions: Cipro and clindamycin as prescribed. Ibuprofen as prescribed for inflammation. Percocet as prescribed for pain. Follow-up in the emergency department in 48 hours if swelling and pain are still present. Return to the emergency department sooner if increasing pain, swelling, or fever greater than 100.5 degrees. Follow-up with Dr. Nicole, ENT, next week. Call Monday for appointment. Prescriptions: Oxycodone HCl/Acetaminophen [Percocet 5/325mg tablet] 1 tab PO Q6HP PRN #10 tablet PRN Reason: Moderate To Severe Pain Transmission Status: Sent to [facility] Ibuprofen [Ibuprofen 800mg Tab] 800 mg PO Q8HP PRN #20 tab PRN Reason: Moderate Pain Transmission Status: Pending to [facility] Ciprofloxacin HCl [Ciprofloxacin 500mg Tab] 500 mg PO BID #20 tab Transmission Status: Pending to [facility] clindamycin HCL [Clindamycin HCl 300mg Cap] 300 mg PO Q6 #40 cap Transmission Status: Pending to [facility] Referrals: ProviderKota MD [Primary Care Provider] - Matthew Nicole MD [Staff Physician] - - Critical Care Critical Care Time: No Attestation: On 07/27/19, the high probability of a clinically significant, sudden or life threatening deterioration of the following system(s) required my full and direct attention, intervention and personal management. The time I documented below is in addition to time spent performing reported procedures but includes the following listed in this critical care notation. Medical Decision Making - Fernie Inquiry Pt receiving controlled substance: Yes Fernie was queried for this patient: Yes Reference #:: [id number] Risks and benefits of using a controlled substance: were not discussed with pt by me Comment: pending, manual process Vital Signs: 07/27/19 18:15 07/27/19 18:56 07/27/19 19:44 Temperature 98 F 98.9 F Temperature Source Oral Oral Pulse Rate [Left Radial] 71 62 Respiratory Rate 16 Blood Pressure [Right Arm] 104/67 L 120/71 Blood Pressure Mean [Right Arm] 79 87 Blood Pressure Position [Right Arm] Sitting Sitting 02 Sat by Pulse Oximetry 98 Oxygen Delivery Method Room Air - Lab Data Lab Results 07/27/19 18:35: WBC 6.2, RBC 4.79, Hgb 14.6, Hct 41.8 L, MCV 87.3, MCH 30.4, MCHC 34.9, RDW 12.8, Plt Count 168, MPV 7.4, Neut % (Auto) 66.6, Lymph % (Auto) 22.5, [place] % (Auto) 6.4, Eos % (Auto) 2.8, Baso % (Auto) 1.8, Neut # (Auto) 4.2, Lymph # (Auto) 1.4, [place] # (Auto) 0.4, Eos # (Auto) 0.2, Baso # (Auto) 0.1 07/27/19 18:35: Sodium 136, Potassium 3.5, Chloride 98, Carbon Dioxide 32 H, Anion Gap 9.5, BUN 12, Creatinine 0.60 L, Estimated Creat Clear 197, Estimated GFR 145, Est GFR ( Amer) 176, Glucose 117 H, Calcium 9.9, Total Bilirubin 0.4, AST 36, ALT 27, Alkaline Phosphatase 63, Total Protein 7.9, Albumin 4.7, Globulin 3.2, Albumin/Globulin Ratio 1.5 07/27/19 18:35: Lactate 1.0 Result diagrams: 07/27/19 18:35 07/27/19 18:35 Orders (Tests/Meds): ED MEDICATIONS Generic Name Dose Route Start Last Admin Trade Name Freq PRN Reason Stop Dose Admin Levofloxacin/Dextrose 750 mg in 150 mls @ 100 mls/hr 07/27/19 18:30 07/27/19 18:55 Levofloxacin 750mg/150ml Premix IV 08/10/19 18:29 100 mls/hr Q24H LINA Administration Protocol Discontinued Medications Generic Name Dose Route Start Last Admin Trade Name Freq PRN Reason Stop Dose Admin Ketorolac Tromethamine 30 mg 07/27/19 18:22 07/27/19 18:30 Toradol 30mg/Ml Vial IV 07/27/19 18:23 30 mg ONCE ONE Administration Morphine Sulfate 4 mg 07/27/19 18:22 07/27/19 18:30 Morphine 4mg/Ml Syringe IV 07/27/19 18:23 4 mg ONCE ONE Administration Morphine Sulfate 4 mg
--- NOTE | 2019-07-27 18:35 | PC.NURSE ---
pt with localized redness and itching to rt upper arm after ivp meds given. pt denies any other c/o. iv flushed with ns. pt states some relief of itching with flushed
[2019-07-27 18:56] VITALS: BP 120/71; PULSE 62
--- NOTE | 2019-07-27 18:59 | PC.NURSE ---
pt states no relief with medications given
[2019-07-27 19:04] LABS: Basophils # 0.1 K/mm3 (0-0.2); Basophils % 1.8 % (0.1-2.0); Eosinophils # 0.2 K/mm3 (0.0-0.4); Eosinophils % 2.8 % (0.1-12.0); Hematocrit 41.8 % (42.0-52.0); Hemoglobin 14.6 g/dL (14.1-18.0); Lymphocytes # 1.4 K/mm3 (0.7-4.5); Lymphocytes % 22.5 % (10-50); Mean Corpuscular HGB Conc 34.9 g/dL (31.8-35.4); Mean Corpuscular Hemoglobin 30.4 pg (27.0-31.2); Mean Corpuscular Volume 87.3 fl (80-94); Mean Platelet Volume 7.4 fl (7.4-10.4); Monocytes # 0.4 K/mm3 (0.1-1.0); Monocytes % 6.4 % (1.7-9.3); Neutrophils # 4.2 K/mm3 (1.8-7.8); Neutrophils % 66.6 % (37.0-80.0); Platelet Count 168 K/mm3 (142-424); Red Blood Count 4.79 M/mm3 (4.60-6.20); Red Cell Distribution Width 12.8 % (11.5-17.5); White Blood Count 6.2 K/mm3 (4.8-10.8)
[2019-07-27 19:14] LABS: Alanine Aminotransferase 27 U/L (12-78); Albumin Level 4.7 g/dl (3.5-5.0); Albumin/Globulin Ratio 1.5 (1.1-1.8); Alkaline Phosphatase 63 U/L (38-126); Anion Gap 9.5 mEq/L (5-15); Aspartate Amino Transferase 36 U/L (17-59); Bilirubin,Total 0.4 mg/dl (0.2-1.3); Blood Urea Nitrogen 12 mg/dl (9-20); Calcium 9.9 mg/dl (8.4-10.2); Carbon Dioxide 32 mmol/L (22.0-30.0); Chloride 98 mmol/L (98-107); Creatinine Clearance Estimated 197 mL/min (50-200); Estimated Glomerular Filt Rate 145 ml/min (>60); GFR (African American) 176 ML/MIN (>60); Globulin 3.2 g/dL (1.3-3.2); Glucose 117 mg/dl (74-100); Potassium 3.5 mmoL/L (3.5-5.1); Sodium 136 mmol/L (136-145); Total Protein,Serum 7.9 g/dl (6.3-8.2)
[2019-07-27 19:44] VITALS: TEMP 37.2
[2019-07-27 20:09] VITALS: BP 121/75; PULSE 68; RESP 19; TEMP 36.7; O2SAT 98
== END 2019-07-27 20:11 | disposition home or self-care (01) ==
PROVIDERS: Emergency Provider Emergency Medicine
DX: H61.002 Unspecified perichondritis of left external ear (principal); Z87.891 Personal history of nicotine dependence
CPT/HCPCS: 80053; 83605; 85025; 87040; 96365; 96375; 96376; 99283; 99284; J1956; J2405

== ENCOUNTER 2019-08-27 21:54 | Emergency (ER) | payer MEDICAID, SELFPAY ==
[2019-08-27 22:11] VITALS: BP 156/101; PULSE 56; RESP 15; TEMP 36.7; O2SAT 97; BMI 26.4
--- NOTE | 2019-08-27 22:17 | CT_ITS ---
PROCEDURE: CT ABDOMEN PELVIS WO CON CLINICAL INDICATION: Kidney stone rule out COMPARISON: ABDPELWW CT abdomen pelvis wo/w con from 09/18/2018 TECHNIQUE: Axial images obtained with sagittal and coronal reformats. All CT scans at the facility use one or more dose reduction, viz: automated exposure control, ma/kV adjustment per patient size (including targeted exams where dose is matched to indication, i.e. head), or iterative reconstruction technique. FINDINGS: Lung bases are clear. The unenhanced liver is unremarkable. Splenomegaly of 15 centimeters and a few splenic calcifications are noted. The collapsed gallbladder, kidneys, adrenal glands, pancreas, aorta, small and large bowel is unremarkable except for moderate stool throughout the colon. The area of the appendix is unremarkable. Soft tissues and bony structures are unremarkable. CT scan of the pelvis without contrast: Prostate, seminal vesicles,, bladder, soft tissue and bony structures are unremarkable. Sigmoid diverticulosis is noted. IMPRESSION: Splenomegaly, sigmoid diverticulosis Dictated by: Yayo Harris 08/28/2019 08:12 Electronically signed by Yayo Harris in [place] 08/28/2019 08:12
[2019-08-27 22:33] LABS: Basophils # 0.1 K/mm3 (0-0.2); Basophils % 1.2 % (0.1-2.0); Eosinophils # 0.3 K/mm3 (0.0-0.4); Eosinophils % 5.5 % (0.1-12.0); Hematocrit 43.9 % (42.0-52.0); Hemoglobin 15.6 g/dL (14.1-18.0); Lymphocytes # 2.4 K/mm3 (0.7-4.5); Lymphocytes % 39.1 % (10-50); Mean Corpuscular HGB Conc 35.4 g/dL (31.8-35.4); Mean Corpuscular Hemoglobin 31.1 pg (27.0-31.2); Mean Corpuscular Volume 87.8 fl (80-94); Mean Platelet Volume 7.9 fl (7.4-10.4); Monocytes # 0.4 K/mm3 (0.1-1.0); Monocytes % 5.9 % (1.7-9.3); Neutrophils % 48.3 % (37.0-80.0); Platelet Count 174 K/mm3 (142-424); Red Cell Distribution Width 12.9 % (11.5-17.5); White Blood Count 6.2 K/mm3 (4.8-10.8)
[2019-08-27 22:38] LABS: Chloride 100 mmol/L (98-107); Potassium 4.2 mmoL/L (3.5-5.1); Sodium 139 mmol/L (136-145)
[2019-08-27 22:41] LABS: Alanine Aminotransferase 33 U/L (12-78); Alkaline Phosphatase 48 U/L (38-126); Amylase 76 U/L (30-110); Anion Gap 13.2 mEq/L (5-15); Aspartate Amino Transferase 33 U/L (17-59); Bilirubin,Total 0.4 mg/dl (0.2-1.3); Blood Urea Nitrogen 15 mg/dl (9-20); Calcium 9.5 mg/dl (8.4-10.2); Carbon Dioxide 30 mmol/L (22.0-30.0); Creatinine Clearance Estimated 169 mL/min (50-200); Estimated Glomerular Filt Rate 121 ml/min (>60); GFR (African American) 147 ML/MIN (>60); Glucose 104 mg/dl (74-100); Lipase 72 U/L (23-300)
[2019-08-27 22:42] LABS: Albumin Level 4.3 g/dl (3.5-5.0); Albumin/Globulin Ratio 1.4 (1.1-1.8); Total Protein,Serum 7.3 g/dl (6.3-8.2)
--- NOTE | 2019-08-27 23:04 | HMH.EDGENADL ---
ED Disposition Clinical Impression: Acute flank pain Disposition: Home, Self-Care Condition on Discharge: Good Instructions: DI for Acute Pain -- Adult Additional Instructions: use meds and monitor for rash and recheck if needed and see pcp for follow up Prescriptions: predniSONE [Prednisone 20mg Tab] 20 mg PO BID #10 tab Transmission Status[facility] Ketorolac Tromethamine [Toradol 10mg tablet] 10 mg PO Q8H 3 Days #9 tab Transmission Status: [facility] Referrals: Provider,Referral, [Primary Care Provider] - - Critical Care Critical Care Time: No Attestation: On 08/27/19, the high probability of a clinically significant, sudden or life threatening deterioration of the following system(s) required my full and direct attention, intervention and personal management. The time I documented below is in addition to time spent performing reported procedures but includes the following listed in this critical care notation. Medical Decision Making - Medical Records Medical records reviewed: Yes: I reviewed the patient's medical records. - Fernie Inquiry Pt receiving controlled substance: No Vital Signs: 08/27/19 22:11 08/27/19 23:15 08/27/19 23:58 Temperature 98.1 F Temperature Source Oral Pulse Rate [Right Brachial] 56 L 59 L 52 L Respiratory Rate 15 16 Blood Pressure [Right Arm] 156/101 H 175/112 H 157/91 H Blood Pressure Mean [Right Arm] 119 133 113 Blood Pressure Source [Right Arm] Automatic Cuff Automatic Cuff Automatic Cuff Blood Pressure Position [Right Arm] Sitting Sitting Sitting 02 Sat by Pulse Oximetry 97 98 95 Oxygen Delivery Method Room Air Room Air Room Air 08/28/19 00:56 Temperature Temperature Source Pulse Rate [Right Brachial] 55 L Respiratory Rate Blood Pressure [Right Arm] 164/90 H Blood Pressure Mean [Right Arm] 114 Blood Pressure Source [Right Arm] Automatic Cuff Blood Pressure Position [Right Arm] Sitting 02 Sat by Pulse Oximetry 94 L Oxygen Delivery Method Room Air - Lab Data Lab results reviewed: Yes: I reviewed the patient's lab results. Lab Results 08/27/19 22:24: ESR 22 H 08/27/19 22:26: WBC 6.2, RBC 5.00, Hgb 15.6, Hct 43.9, MCV 87.8, MCH 31.1, MCHC 35.4, RDW 12.9, Plt Count 174, MPV 7.9, Neut % (Auto) 48.3, Lymph % (Auto) 39.1, [place] % (Auto) 5.9, Eos % (Auto) 5.5, Baso % (Auto) 1.2, Neut # (Auto) 3.0, Lymph # (Auto) 2.4, [place] # (Auto) 0.4, Eos # (Auto) 0.3, Baso # (Auto) 0.1 08/27/19 22:26: Sodium 139, Potassium 4.2, Chloride 100, Carbon Dioxide 30, Anion Gap 13.2, BUN 15, Creatinine 0.70, Estimated Creat Clear 169, Estimated GFR 121, Est GFR ( Amer) 147, Glucose 104 H, Calcium 9.5, Total Bilirubin 0.4, AST 33, ALT 33, Alkaline Phosphatase 48, Total Protein 7.3, Albumin 4.3, Globulin 3.0, Albumin/Globulin Ratio 1.4, Amylase 76, Lipase 72 08/27/19 23:45: Urine Color Yellow, Urine Appearance Clear, Urine pH 6.5, Ur Specific [place] 1.025, Urine Protein Negative, Urine Glucose (UA) Negative, Urine Ketones Negative, Urine Blood Negative, Urine Nitrate Negative, Urine Bilirubin Negative, Urine Urobilinogen 0.2, Ur Leukocyte Esterase Negative, Urine Bacteria Trace Result diagrams: 08/27/19 22:26 08/27/19 22:26 Orders (Tests/Meds): ED MEDICATIONS Generic Name Dose Route Start Last Admin Trade Name Freq PRN Reason Stop Dose Admin Sodium Chloride 1,000 mls @ 999 mls/hr 08/27/19 23:15 08/27/19 23:14 Sod Chlor 0.9% 1000ml Bag IV 08/28/19 00:15 999 mls/hr .Q1H1M LINA Administration Discontinued Medications Generic Name Dose Route Start Last Admin Trade Name Freq PRN Reason Stop Dose Admin Hydromorphone HCl 1 mg 08/27/19 23:52 08/27/19 23:54 Dilaudid 2mg/Ml Syringe IV 08/27/19 23:53 1 mg ONCE ONE Administration Ketorolac Tromethamine 30 mg 08/27/19 22:29 08/27/19 22:37 Toradol 30mg/Ml Vial IV 08/27/19 22:30 30 mg ONCE ONE Administration Methylprednisolone Sodium
[2019-08-27 23:15] VITALS: BP 175/112; PULSE 59; O2SAT 98
[2019-08-27 23:41] LABS: Erythrocyte Sedimentation Rate 22 mm/hr (0-15)
[2019-08-27 23:55] LABS: Appearance,Urine CLEAR (Clear); Bilirubin,Urine Negative (Negative); Blood, Urine Negative (Negative); Color,Urine YELLOW (Yellow); Glucose,Urine (UA) Negative (Negative); Ketones,Urine Negative (Negative); Leukocyte Esterase,Urine Negative (Negative); Microscopic, Urine URINE MICROSCOPIC (MICROSCOPIC); Nitrate,Urine Negative (Negative); PH,Urine 6.5 (5.0-8.5); Protein,Urine Negative (Negative); Specific Gravity, Urine 1.025 (1.005-1.030); Urobilinogen,Urine 0.2 EU/dl (0.2)
[2019-08-27 23:56] LABS: Bacteria,Urine Trace /lpf
[2019-08-27 23:58] VITALS: BP 157/91; PULSE 52; RESP 16; O2SAT 95
--- NOTE | 2019-08-28 00:06 | XR_ITS ---
PROCEDURE: XR CHEST 2V CLINICAL HISTORY: chest pain COMPARISON: Chest from 08/20/2018 FINDINGS: Degenerative thoracic scoliosis is present. Lung mckeon, cardiac silhouette, and soft tissues are intact IMPRESSION: Degenerative thoracic scoliosis, clear lung mckeon Dictated by: Yayo Harris 08/28/2019 08:06 Electronically signed by Yayo Harris in [place] 08/28/2019 08:06
[2019-08-28 00:56] VITALS: BP 164/90; PULSE 55; O2SAT 94
[2019-08-28 01:15] VITALS: BP 160/89; PULSE 52; RESP 16; TEMP 36.7; O2SAT 95
--- NOTE | 2019-08-28 01:15 | PC.NURSE ---
Gave patient medication and discharge instructions. Patient waiting for his ride at this time.
[2019-08-28 01:44] LABS: C-Reactive Protein 0.9 mg/L (0-4)
--- NOTE | 2019-08-28 01:52 | PC.NURSE ---
call received from mandi mora,launch leader who was escorting patient out to vehicle to receive a signature from his local flatbed driver (due to nighttime safety); pts ride was not outside and july informed him he needed to return inside due to the fact he had no obvious ride. pt became belligerent and refused to come back inside. demanded to sign his own paperwork and was informed he couldn't do so. july turned back to call warehouse helper and pt eloped out of parking lot. unable to tell where he went. staff including warehouse helper and myself notified pd and searched hospital premises. not able to locate patient. called patient's emergency contact listed-his father-who informed staff patient didn't call him for a ride, and in fact lives at his address in a camper onsite. no contact has been made with pt at this time. awaiting pd at this time
--- NOTE | 2019-08-28 12:03 | ECG_ITS ---
APPROVED REPORT Exam: Resting ECG HR:63 bpm ECG Measurements Heart Rate 63 AXES FL 180 P 47 QRSd 88 QRS 102 QT 386 T 38 QTc 395 <Conclusion> Normal sinus rhythm Rightward axis Borderline ECG Electronically signed by : Kirby Ramirez, 08/29/2019 13:41:00
== END 2019-08-28 01:30 | disposition home or self-care (01) ==
PROVIDERS: Emergency Provider Emergency Medicine
DX: R10.12 Left upper quadrant pain (principal); M54.5 Low back pain; F12.10 Cannabis abuse, uncomplicated; F19.10 Other psychoactive substance abuse, uncomplicated; Z87.891 Personal history of nicotine dependence
CPT/HCPCS: 71046; 74176; 80053; 81001; 82150; 83690; 85025; 85651; 86140; 93005; 96365; 96375; 96376; 99284; J2405

== ENCOUNTER 2019-08-28 10:02 | Observation (INO) | payer OTHER, SELFPAY ==
[2019-08-28] VITALS (7 sets, daily range): BP systolic 147–178; BP diastolic 70–98; PULSE 66–82; RESP 17–24; TEMP 36.5–36.9; O2SAT 97–100; BMI 27.1; BMI 25.8
--- NOTE | 2019-08-28 10:12 | CT_ITS ---
PROCEDURE: CT ABDOMEN PELVIS W CON CLINICAL INDICATION: L flank pain, vomitting COMPARISON: CT ABDOMEN PELVIS WO CON from 08/27/2019 TECHNIQUE: IV Contrast: 75ML OPTIRAY 350 Oral Contrast None Axial images obtained with sagittal and coronal reformats. All CT scans at the facility use one or more dose reduction, viz: automated exposure control, ma/kV adjustment per patient size (including targeted exams where dose is matched to indication, i.e. head), or iterative reconstruction technique. FINDINGS: Lung bases are clear. Partially visualized enhanced liver is unremarkable. There is a hiatal hernia. Gallbladder, adrenal glands, pancreas, and kidneys are unremarkable except for a 5 millimeter cyst in the interpolar region of the right kidney.. There are few splenic calcifications. Aorta, small and large bowel and area of the appendix, soft issues, and bony structures are unremarkable. CT scan of the pelvis with contrast: The prostate, seminal vesicles, bladder, soft tissues and bony structures are unremarkable. Sigmoid diverticulosis is noted. IMPRESSION: Sigmoid diverticulosis 5 millimeter right renal cyst Dictated by: Yayo Harris 08/28/2019 11:17 Electronically signed by Yayo Harris in [place] 08/28/2019 11:17
--- NOTE | 2019-08-28 10:17 | HMH.EDGENADL ---
ED Disposition Clinical Impression: Left flank pain Intractable vomiting Qualifiers: Vomiting type: unspecified Nausea presence: with nausea Qualified Code(s): R11.2 - Nausea with vomiting, unspecified Disposition: Admitted as Observation Condition on Discharge: Fair - Critical Care Critical Care Time: No Attestation: On , the high probability of a clinically significant, sudden or life threatening deterioration of the following system(s) required my full and direct attention, intervention and personal management. The time I documented below is in addition to time spent performing reported procedures but includes the following listed in this critical care notation. Medical Decision Making - Medical Records Medical records reviewed: Yes: I reviewed the patient's medical records. - Fernie Inquiry Pt receiving controlled substance: Yes Fernie was queried for this patient: Yes Reference #:: [id number] Risks and benefits of using a controlled substance: were not discussed with pt by me Comment: 9 rxs, 8 are for buprenorphine, last rx in July. Vital Signs: 08/28/19 10:08 08/28/19 11:25 08/28/19 12:33 Temperature 97.7 F Temperature Source Oral Pulse Rate Pulse Rate [Right Radial] 81 82 66 Respiratory Rate 24 Blood Pressure Blood Pressure [Right Arm] 173/97 H 178/98 H 166/70 H Blood Pressure Mean [Right Arm] 122 124 102 Blood Pressure Source [Right Arm] Automatic Cuff Automatic Cuff Automatic Cuff Blood Pressure Position [Right Arm] Sitting Sitting Sitting 02 Sat by Pulse Oximetry 100 99 99 Oxygen Delivery Method Room Air Room Air Room Air 08/28/19 13:15 Temperature 97.7 F Temperature Source Oral Pulse Rate 70 Pulse Rate [Right Radial] Respiratory Rate 18 Blood Pressure 147/78 H Blood Pressure [Right Arm] Blood Pressure Mean [Right Arm] Blood Pressure Source [Right Arm] Blood Pressure Position [Right Arm] 02 Sat by Pulse Oximetry Oxygen Delivery Method Room Air - Lab Data Lab results reviewed: Yes: I reviewed the patient's lab results. Lab Results 08/28/19 10:25: WBC 11.3 H D, RBC 5.32, Hgb 16.5, Hct 46.4, MCV 87.3, MCH 31.1, MCHC 35.6 H, RDW 13.1, Plt Count 217, MPV 7.7, Neut % (Auto) 87.1 H, Lymph % (Auto) 11.0, [place] % (Auto) 0.9 L, Eos % (Auto) 0.9, Baso % (Auto) 0.1, Neut # (Auto) 9.8 H, Lymph # (Auto) 1.2, [place] # (Auto) 0.1, Eos # (Auto) 0.1, Baso # (Auto) 0.0, Total Counted 100, Neutrophils % (Manual) 84 H, Lymphocytes % (Manual) 13, Monocytes % (Manual) 2, Eosinophils % (Manual) 1, Platelet Estimate Normal, RBC Morphology Normal 08/28/19 10:25: Sodium 139, Potassium 4.3, Chloride 103, Carbon Dioxide 22 D, Anion Gap 18.3 H, BUN 18, Creatinine 0.60 L, Estimated Creat Clear 197, Estimated GFR 145, Est GFR ( Amer) 176, Glucose 209 H D, Calcium 10.5 H D, Total Bilirubin 0.6, AST 45 D, ALT 62 D, Alkaline Phosphatase 59, Total Protein 8.2, Albumin 5.0 D, Globulin 3.2, Albumin/Globulin Ratio 1.6, Amylase 113 H D 08/28/19 10:25: Lipase 276 Result diagrams: 08/28/19 10:25 08/28/19 10:25 Orders (Tests/Meds): ED MEDICATIONS Generic Name Dose Route Start Last Admin Trade Name Freq PRN Reason Stop Dose Admin Diazepam 5 mg 08/28/19 13:53 08/28/19 14:31 Valium 10mg/2ml Syringe IV 09/27/19 13:52 5 mg Q6HP PRN Administration Muscle Spasm Hydromorphone HCl 1 mg 08/28/19 13:18 08/28/19 18:57 Dilaudid 2mg/Ml Syringe IV 09/27/19 13:17 1 mg Q4HP PRN Administration Severe Pain Lactated Ringer's 1,000 mls @ 125 mls/hr 08/28/19 13:18 08/28/19 13:35 Lactated Ringer's 1000 Ml Bag IV 09/27/19 13:17 125 mls/hr .Q8H LINA Administration Methylprednisolone Sodium Succinate 80 mg 08/28/19 14:00 08/28/19 14:26 Solu-Medrol 125mg/2ml Vial IV 09/27/19 13:59 80 mg Q8H LINA Administration Ondansetron HCl 4 mg 08/28/19 13:18 08/28/19 18:57 Zofran 4mg/2ml Vial IV 09/27/19 13:17 4 mg Q8HP PRN Administration Vomiting Sodium Chloride
--- NOTE | 2019-08-28 10:22 | PC.NURSE ---
Pt to rad
--- NOTE | 2019-08-28 10:31 | PC.NURSE ---
pt to CT
[2019-08-28 10:34] LABS: Basophils % 0.1 % (0.1-2.0); Eosinophils # 0.1 K/mm3 (0.0-0.4); Eosinophils % 0.9 % (0.1-12.0); Hematocrit 46.4 % (42.0-52.0); Hemoglobin 16.5 g/dL (14.1-18.0); Lymphocytes # 1.2 K/mm3 (0.7-4.5); Mean Corpuscular HGB Conc 35.6 g/dL (31.8-35.4); Mean Corpuscular Hemoglobin 31.1 pg (27.0-31.2); Mean Corpuscular Volume 87.3 fl (80-94); Mean Platelet Volume 7.7 fl (7.4-10.4); Monocytes # 0.1 K/mm3 (0.1-1.0); Monocytes % 0.9 % (1.7-9.3); Neutrophils # 9.8 K/mm3 (1.8-7.8); Neutrophils % 87.1 % (37.0-80.0); Platelet Count 217 K/mm3 (142-424); Red Blood Count 5.32 M/mm3 (4.60-6.20); Red Cell Distribution Width 13.1 % (11.5-17.5); White Blood Count 11.3 K/mm3 (4.8-10.8)
[2019-08-28 10:37] LABS: MANUAL DIFFERENTIAL MANUAL DIFFERENTIAL (MANUAL DIFF)
[2019-08-28 10:40] LABS: Chloride 103 mmol/L (98-107); Potassium 4.3 mmoL/L (3.5-5.1); Sodium 139 mmol/L (136-145)
[2019-08-28 10:42] LABS: Amylase 113 U/L (30-110); Lipase 276 U/L (23-300)
[2019-08-28 10:43] LABS: Alanine Aminotransferase 62 U/L (12-78); Albumin/Globulin Ratio 1.6 (1.1-1.8); Alkaline Phosphatase 59 U/L (38-126); Anion Gap 18.3 mEq/L (5-15); Aspartate Amino Transferase 45 U/L (17-59); Bilirubin,Total 0.6 mg/dl (0.2-1.3); Blood Urea Nitrogen 18 mg/dl (9-20); Carbon Dioxide 22 mmol/L (22.0-30.0); Creatinine Clearance Estimated 197 mL/min (50-200); Estimated Glomerular Filt Rate 145 ml/min (>60); GFR (African American) 176 ML/MIN (>60); Globulin 3.2 g/dL (1.3-3.2); Glucose 209 mg/dl (74-100); Total Protein,Serum 8.2 g/dl (6.3-8.2)
[2019-08-28 10:45] LABS: Eosinophils % 1 % (0-3); Lymphocytes % 13 % (10-50); Monocytes % 2 % (2-9); Neutrophils % 84 % (42-76); Platelet Estimate Normal; RBC Morphology Normal; Total Cells Counted 100
[2019-08-28 10:58] LABS: Calcium 10.5 mg/dl (8.4-10.2)
--- NOTE | 2019-08-28 12:10 | PC.NURSE ---
Notified Dr Simpson of need for consult on pt, stated he would call us back
--- NOTE | 2019-08-28 12:12 | PC.NURSE ---
Dr Null speaking to Dr Simpson
--- NOTE | 2019-08-28 12:12 | PC.NURSE ---
speaking to Dr Simpson
--- NOTE | 2019-08-28 12:31 | PC.NURSE ---
Called CM, house and admissions, pt going to room 208
--- NOTE | 2019-08-28 12:58 | PC.NURSE ---
attempted to call report to second floor, spoke with BRIGITTE Larsen stated she will need to call me back she is doing a discharge.
--- NOTE | 2019-08-28 13:14 | PC.NURSE ---
report called to Suzie Dorsey RN on second floor at this time
--- NOTE | 2019-08-28 13:54 | HMH.HP ---
*Admission Date: 08/28/19 *Chief complaint: Intractable left flank pain and vomiting *History of present illness: 44-year-old generally healthy male who presented to the emergency department today for the second time in 24 hours with intractable left flank pain. He reports that the pain started fairly insidiously 48 hours ago and may have been associated with lifting an elderly, obese neighbor who falls frequently. He noticed that the pain was worse Monday night with some nausea, and late in the evening Monday [id number] to the emergency department with intractable left flank pain. Significant work-up was undertaken, no etiology of the pain was found and patient was discharged with some pain medication. This has not helped and is come back to the emergency department today with intractable vomiting, nausea, and significant pain in the left flank that radiates around into the left lateral flank stopping at about the anterior axillary line just below the level of the umbilicus but does not go into the abdomen. He reports nausea only because of the pain and has not been afflicted with GI symptoms before this episode. He denies numbness into the hands or the feet. He denies rash. He denies recent ill contacts. He denies trauma, falls or fever. Past history is otherwise negative although he does have occasional regular back pain. [facility] History I have reviewed the patient's past medical history: Yes Medical History: Denies:: Cancer, Diabetes Mellitus Type 1, Diabetes Mellitus Type 2, Gall Bladder Disease, Gastroesophageal Reflux Disease(GERD), Gastrointestinal Bleed, Hiatal Hernia, Kidney Stones, MRSA, Ulcer *Have you ever received a pneumonia vaccine?: No *Have you received a flu vaccine this season?: No Other Surgeries: Yes: No Previous Surgery Amputation: No Fractures: No - *Social History Educational Level: Attended High School Smoking Status: Former smoker Tobacco Type: cigarettes # Packs/Day (cigarettes): 1 #Yrs smoked (if former smoker): 20 Alcohol Intake: never Substance Use Type: denies use (But drug screen positive for opiates and marijuana) *Occupational Status:: unemployed Housing: other Household Members: none *Travel in the last 8 weeks: None Family Hx:: Coronary Artery Disease, Heart Attack Review of Systems - Review of Systems Review of systems:: pertinent systems reviewed and negative unless documented below Meds Allergies Allergy/AdvReac Type Severity Reaction Status Date / Time No Known Allergies Allergy Verified 08/20/18 21:44 Exam Vital signs and Labs for Last 24 Hours: Temp Pulse Resp BP Pulse Ox 97.8 F 68 17 178/83 H 99 08/28/19 13:37 08/28/19 13:37 08/28/19 13:37 08/28/19 13:37 08/28/19 13:37 Laboratory Results - last 24 hr 08/28/19 10:25: WBC 11.3 H D, RBC 5.32, Hgb 16.5, Hct 46.4, MCV 87.3, MCH 31.1, MCHC 35.6 H, RDW 13.1, Plt Count 217, MPV 7.7, Neut % (Auto) 87.1 H, Lymph % (Auto) 11.0, [place] % (Auto) 0.9 L, Eos % (Auto) 0.9, Baso % (Auto) 0.1, Neut # (Auto) 9.8 H, Lymph # (Auto) 1.2, [place] # (Auto) 0.1, Eos # (Auto) 0.1, Baso # (Auto) 0.0, Total Counted 100, Neutrophils % (Manual) 84 H, Lymphocytes % (Manual) 13, Monocytes % (Manual) 2, Eosinophils % (Manual) 1, Platelet Estimate Normal, RBC Morphology Normal 08/28/19 10:25: Sodium 139, Potassium 4.3, Chloride 103, Carbon Dioxide 22 D, Anion Gap 18.3 H, BUN 18, Creatinine 0.60 L, Estimated Creat Clear 197, Estimated GFR 145, Est GFR ( Amer) 176, Glucose 209 H D, Calcium 10.5 H D, Total Bilirubin 0.6, AST 45 D, ALT 62 D, Alkaline Phosphatase 59, Total Protein 8.2, Albumin 5.0 D, Globulin 3.2, Albumin/Globulin Ratio 1.6, Amylase 113 H D 08/28/19 10:25: Lipase 276 I & O for Last 24 hours: Intake & Output 08/26/19 08/27/19 08/28/19 08/29/19 11:59 11:59 11:59 11:59 Intake Total 1000 / 1000 Balance 1000 / 1000 Weight 200 lb 19 lb 9.233 oz Narrative: Pain behaviors are exhibited with assuming th
--- NOTE | 2019-08-28 14:07 | P.CONPHA_ITS ---
[facility] VTE Monitoring - Patient Demographics Admission date: 08/28/19 Report Date: 08/28/19 Time: 14:07 Allergies/Adverse Reactions: Patient Allergies No Known Allergies Allergy (Verified 08/20/18 21:44) Height: 1.85 m Weight: 8.88 kg Patient Problems: Current Active Problems Left flank pain (Acute) Intractable vomiting (Acute) - VTE Risk Labs: VTE Related Lab Results Hgb 16.5 g/dL (14.1-18.0) 08/28/19 10:25 Hct 46.4 % (42.0-52.0) 08/28/19 10:25 Plt Count 217 K/mm3 (142-424) 08/28/19 10:25 BUN 18 mg/dl (9-20) 08/28/19 10:25 Creatinine 0.60 mg/dl (0.66-1.25) L 08/28/19 10:25 Estimated Creat Clear 197 mL/min (50-200) 08/28/19 10:25 Was VTE Risk Assessment Performed: Yes VTE Score: 1 VTE Risk Level: Very Low Risk Clinical Trial Participant: No - Prophylaxis VTE Prophylaxis Ordered?: Yes Types of VTE Prophylaxis: TEDS Knee High
--- NOTE | 2019-08-28 14:24 | MR_ITS ---
PROCEDURE: MR THORACIC SPINE WO CON CLINICAL INDICATION: THORACIC NEURALGIA COMPARISON: CT ABDOMEN PELVIS W CON from 08/28/2019 TECHNIQUE: Standard unenhanced thoracic spine MRI technique FINDINGS: There is a probable hypointense atypical hemangioma within the T1 vertebral body. There is otherwise uniform fat marrow signal hyperintensity and the disc spaces and the spinal cord is unremarkable. There is a left lateral disc protrusion at the level T11-T12 producing moderate left lateral recess and moderate left neural foraminal stenosis. The paravertebral structures are unremarkable. IMPRESSION: Spinal stenosis T11-T12 as above Dictated by: Yayo Harris 08/29/2019 08:24 Electronically signed by Yayo Harris in [place] 08/29/2019 08:24
--- NOTE | 2019-08-28 16:00 | PC.NURSE ---
PATIENT TRANSPORTED BY STAFF TO MRI
--- NOTE | 2019-08-28 17:34 | PC.NURSE ---
RETURNED FROM MRI
--- NOTE | 2019-08-28 19:08 | PC.NURSE ---
report given to nazanin
--- NOTE | 2019-08-29 02:45 | PC.NURSE ---
A&O X4. PT RESTLESS THIS SHIFT DUE TO REPORTS OF INADEQUATE PAIN CONTROL. PT WAS ADMINISTERED VALIUM AND DILAUDID X1 PER MAR AT BEGINNING OF SHIFT. PT REPORTED PERSISTENT PAIN, RATING LOWER BACK PAIN A 10/10 BUT STATING 15/10 WHEN ASKED BY THIS RN ON THE PAIN SCALE. NOTIFIED MD PILL COATER, NEW ORDERS GIVEN FOR TORADOL IV ONCE AND PHENERGAN IV ONCE TO BE ADMINISTERED. PT STATED TORADOL DOES NOT WORK BUT I WILL TRY IT . UPON REASSESSMENT PT NOTED RESTING WITH EYES CLOSED LYING IN BED ON LEFT SIDE. NO FURTHER C/O PAIN UNTIL 5 THIS AM. ADMINISTERED VALIUM PER MAY. PT STATES AT THIS TIME TO THIS RN THIS IS THE WORST PAIN I'VE EVER HAD IN MY ENTIRE LIFE , CONTINUES TO RATE PAIN 10/10 ON PAIN SCALE. PT NOTED TO BE LYING CALM IN BED WITH EYES CLOSED AT THIS TIME. WILL REASSESS. BILATERAL LUNGS NOTED CLEAR T/O UPON AUSCULTATION. REFUSED TEDS. VSS. REMAINS SAFE. INDEPENDENT AMB TO AND FROM BATHROOM, TOLERATES AMB WELL WITH NO COMPLAINTS. CALL LIGHT WITHIN REACH. WILL CONTINUE TO MONITOR.
[2019-08-29 04:00] VITALS: BP 149/77; PULSE 68; RESP 16; TEMP 36.7; O2SAT 97
[2019-08-29 05:00] VITALS: BMI 24.4
--- NOTE | 2019-08-29 06:43 | PC.NURSE ---
tech reported a decrease in weight of > 5 kg since previous shift. this rn rechecked wt with pt lying in bed, accurate wt charted for this shift. will pass information along to oncoming rn this am for md notification upon am rounding.
[2019-08-29 08:00] VITALS: BP 160/89; PULSE 79; RESP 18; TEMP 37.2; O2SAT 98
[2019-08-29 08:36] VITALS: RESP 20
--- NOTE | 2019-08-29 09:10 | HMH.ACPN2 ---
Internal Medicine - PN: Subj *Date: 08/29/19 *Time: 08:45 Interval history: Patient continues to be in pain this morning. Most comfortable lying on his left side in position. Continued to have significant pain and nausea overnight. Necessitated IV Phenergan and Dilaudid. MRI returned this morning, reviewed results. Shows spinal stenosis as well as bulging disc at T11/T12 level, this coincides with his distribution of pain per report and clinical exam. Lastly, asked patient this morning if he has struggled with opiate addiction before or been treated with Subutex or Suboxone, he stated no. His Fernie however shows that he has been getting buprenorphine every 1 to 2 months for sar[facility] with [facility] most recent [facility] in early July. Exam Vital signs and Labs for Last 24 Hours: Temp Pulse Resp BP Pulse Ox 98.1 F 68 20 149/77 H 97 08/29/19 04:00 08/29/19 04:00 08/29/19 08:36 08/29/19 04:00 08/29/19 04:00 Laboratory Results - last 24 hr 08/28/19 10:25: WBC 11.3 H D, RBC 5.32, Hgb 16.5, Hct 46.4, MCV 87.3, MCH 31.1, MCHC 35.6 H, RDW 13.1, Plt Count 217, MPV 7.7, Neut % (Auto) 87.1 H, Lymph % (Auto) 11.0, [place] % (Auto) 0.9 L, Eos % (Auto) 0.9, Baso % (Auto) 0.1, Neut # (Auto) 9.8 H, Lymph # (Auto) 1.2, [place] # (Auto) 0.1, Eos # (Auto) 0.1, Baso # (Auto) 0.0, Total Counted 100, Neutrophils % (Manual) 84 H, Lymphocytes % (Manual) 13, Monocytes % (Manual) 2, Eosinophils % (Manual) 1, Platelet Estimate Normal, RBC Morphology Normal 08/28/19 10:25: Sodium 139, Potassium 4.3, Chloride 103, Carbon Dioxide 22 D, Anion Gap 18.3 H, BUN 18, Creatinine 0.60 L, Estimated Creat Clear 197, Estimated GFR 145, Est GFR ( Amer) 176, Glucose 209 H D, Calcium 10.5 H D, Total Bilirubin 0.6, AST 45 D, ALT 62 D, Alkaline Phosphatase 59, Total Protein 8.2, Albumin 5.0 D, Globulin 3.2, Albumin/Globulin Ratio 1.6, Amylase 113 H D 08/28/19 10:25: Lipase 276 I & O for Last 24 hours: Intake & Output 08/26/19 08/27/19 08/28/19 08/29/19 23:59 23:59 23:59 23:59 Intake Total 1320 / 1320 1371 / 1371 Balance 1320 / 1320 1371 / 1371 Weight 88.8 kg 83.546 kg Narrative: Continues to have pain behavior exhibited, assuming the position lying on the left side - *Routine HEENT Exam Head: Present: normocephalic Eye: Present: EOMI, PERRL ENT: Present: mucous membranes moist - *Routine Neck Exam Present: supple. Absent: lymphadenopathy - *Routine Respiratory Exam Present: CTA bilaterally - *Routine Cardiovascular Exam Present: RRR - *Routine Abdominal Exam Present: soft, normoactive bowel sounds. Absent: tenderness - *Routine Extremities Exam Absent: cyanosis, clubbing, edema - Routine Back/Spine/Pelvis Exam Comments: No change in exam from yesterday, still with muscle spasm on left side, pain localizes to left lower thoracic region - *Routine Skin Exam Present: warm. Absent: rash - *Routine Neurological Exam Present: alert, oriented X3 Assessment and Plan (1) Intractable pain Current visit: Yes Status: Acute Category: Medical Code(s): R52 - Pain, unspecified Continue pain regimen, transition oral opiates at this time for longer benefit. Scheduled Toradol. Increased steroids. Pain management consult placed, appreciate their recommendations. Additionally patient's history that he was not honest about this morning on rounds complicates treatment options. Appears she has [facility], last filled last month per his Fernie. Patient however denied being on those types of medications. Suspect hyperalgesia is also a factor though clinically he has significant pain symptoms with his nausea, vomiting, tachycardia, elevated blood pressure. Increase medical management with steroids, scheduled anti-inflammatories, opiates as needed, initiate muscle relaxer. We will continue aggressive inpatient treatment, anticipate discharge in
[2019-08-29 12:00] VITALS: BP 161/80; PULSE 68; RESP 18; TEMP 36.5; O2SAT 99
--- NOTE | 2019-08-29 15:09 | P.CONS_ITS ---
[facility] Pain Management SOAP Note Subjective:: Patient is a 44-year-old white male who is currently inpatient at [facility]. We were consulted today for 3-day history of low back pain for the patient. Patient says that he is having severe low back pain that is radiating into his left buttock area. He says the pain is new onset with no history of trauma. Patient says that the pain is progressively getting worse. He does have imaging of his thoracic spine, however, he does not have any recent imaging of his lumbar spine. He does rate his pain a 9 out of 10 today. Patient is somewhat lethargic during the conversation. He does answer appropriately, however. Patient says that his pain is worse with standing and walking and does improve with sitting. The patient does have notable point tenderness over his left SI joint. Objective:: Physical exam General: Alert and oriented x3, no acute distress, pleasant and cooperative, [on room air] Lungs: Respirations even and unlabored, symmetrical chest expansion Eyes: PERRL Musculoskeletal: Flexion and extension of lumbar spine somewhat guarded secondary to pain, deep tendon reflexes normal, strength in upper and lower extremities [5/5], slightly antalgic gait noted, positive Gaenslen's test, positive distraction test, positive Wellington's test Neurological: Speech clear, bitumastic applier equal, no gross sensory deficit Assessment:: Sacroiliitis, left Plan:: Given that the patient does have point tenderness over his left SI joint and positive Romulo, Beba's, Gaenslen's, distraction test, we will plan for a left SI joint injection upon discharge from the patient. The office will call the patient following discharge and schedule him for the injection. Patient has been encouraged to continue with anti-inflammatories until we see him in the clinic for his injection. Thank you for the consult and we will continue to follow-up with the patient upon discharge. If the patient has any questions he can contact the clinic. The patient and I specifically discussed risk factors for COVID19. These risks include, but are not limited to age greater than 60, heart or lung disease, diabetes, immunosuppression, and travel. We also discussed NSAIDs may worsen COVID19 infection or symptoms. Patient should not use NSAIDs to treat COVID19 signs or symptoms. Patient was also informed that any type of corticosteroid of any form (oral or injection) will decrease the patient's immune system response and may increase the likelihood of COVID19 infection [address] symptoms[address] Dr. Washington has reviewed this note and agrees with this plan of care. This note was dictated using voice recognition software and make contain errors or omissions. [facility] History I have reviewed the patient's past medical history: Yes Medical History: Denies:: Cancer, Diabetes Mellitus Type 1, Diabetes Mellitus Type 2, Gall Bladder Disease, Gastroesophageal Reflux Disease(GERD), Gastrointestinal Bleed, Hiatal Hernia, Kidney Stones, MRSA, Ulcer *Have you ever received a pneumonia vaccine?: No *Have you received a flu vaccine this season?: No Other Surgeries: Yes: No Previous Surgery Amputation: No Fractures: No - *Social History Educational Level: Attended High School Smoking Status: Former smoker Tobacco Type: cigarettes # Packs/Day (cigarettes): 1 #Yrs smoked (if former smoker): 20 Alcohol Intake: never Substance Use Type: denies use (But drug screen positive for opiates and marijuana) *Occupational Status:: unemployed Housing: other Household Members: none *Travel in the last 8 weeks: None Family Hx:: Coronary Artery Disease, Heart Attack
[2019-08-29 15:17] VITALS: BP 152/81; PULSE 74; RESP 18; TEMP 37; O2SAT 95
--- NOTE | 2019-08-29 15:27 | PC.NURSE ---
Pt has been in bed this shift with ambulation intermittently to . Pt has complained of pain 10/10 mostly this shift, although at this time states the meds given have helped some . Pt was anxious earlier this shift and restless with flushed skin. Did take a nap. Appears more comfortable.Lungs cta, s1,s2. Will continue with CIWA's, scored a 2 on prior assessment. Pt has c/o of pain in the left lower back. Warm cloth applied. Pt has refused to eat or drink this shift, continues on a clear liquid diet. States he will try some ice water. Offered pt to take a warm shower and he refused stating theres no way i can do that right now. Dr. Washington office here to see pt and do an injection when pt is d/cd. VSS. Will cont to mx pt this shift.
[2019-08-29 19:35] VITALS: BP 168/94; PULSE 72; RESP 18; TEMP 37.1; O2SAT 96
[2019-08-30] VITALS (7 sets, daily range): BP systolic 150–175; BP diastolic 75–94; PULSE 60–88; RESP 16–20; TEMP 36.4–37.6; O2SAT 95–99; BMI 23.9; BMI 27.1
--- NOTE | 2019-08-30 04:35 | PC.NURSE ---
A&O X4. PT RESTED WELL WITH EYES CLOSED AT BEGINNING OF SHIFT UNTIL 2330. PT AWOKE STATING SEVERE PAIN IN HIS LOWER BACK/ LEFT FLANK REGION, RATING 10/10 ON PAIN SCALE. PT STATED TO THIS RN MULTIPLE TIMES T/O SHIFT THAT THE PAIN MEDS HE HAS BEEN RECEIVING ARE NOT ADEQUATELY CONTROLLING HIS PAIN. HOWEVER AFTER RECEIVING PAIN MEDICATIONS PER MAR HE IS NOTED RESTING WITH EYES CLOSED. PT STATES HE HAS NOT SLEPT ANY THIS SHIFT THUS FAR DUE TO PAIN. T/O AM HE HAS BEEN RESTLESS AND AGITATED, YELLING OUT IN PAIN. SEE PROVIDER NOTIFICATION FOR DETAILS. PT TOLERATED DILAUDID WELL WITH NO FURTHER C/O PAIN THUS FAR. PT NOTED MOST COMFORTABLE IN LEFT SIDE LYING POSITION WHILE IN BED. PT REPORTS NOT HAVING AN APPETITE T/O PREVIOUS SHIFT OR THIS HS. MILD C/O NAUSEA THIS AM, ADMINISTERED ZOFRAN PER MAR X1. UPON REASSESSMENT PT STATES ADEQUATE PAIN RELIEF. NO EDEMA NOTED. INDEPENDENT TRANSFER TO AND FROM BATHROOM, TOLERATES WELL. VSS. REMAINS SAFE. CALL LIGHT WITHIN REACH. WILL CONTINUE TO MONITOR.
--- NOTE | 2019-08-30 05:57 | PC.NURSE ---
Placed a warm compress on pt's left side per pt request. Pt states this has helped relieve some of his pain.
[2019-08-30 07:37] LABS: Chloride 100 mmol/L (98-107); Potassium 3.8 mmoL/L (3.5-5.1); Sodium 136 mmol/L (136-145)
[2019-08-30 07:39] LABS: Alanine Aminotransferase 35 U/L (12-78); Aspartate Amino Transferase 33 U/L (17-59); Blood Urea Nitrogen 19 mg/dl (9-20); Creatinine Clearance Estimated 178 mL/min (50-200); Estimated Glomerular Filt Rate 145 ml/min (>60); GFR (African American) 176 ML/MIN (>60)
[2019-08-30 07:40] LABS: Albumin Level 4.8 g/dl (3.5-5.0); Albumin/Globulin Ratio 1.4 (1.1-1.8); Alkaline Phosphatase 57 U/L (38-126); Anion Gap 13.8 mEq/L (5-15); Bilirubin,Total 1.1 mg/dl (0.2-1.3); Calcium 9.9 mg/dl (8.4-10.2); Carbon Dioxide 26 mmol/L (22.0-30.0); Globulin 3.4 g/dL (1.3-3.2); Glucose 173 mg/dl (74-100); Total Protein,Serum 8.2 g/dl (6.3-8.2)
[2019-08-30 07:43] LABS: Basophils % 0.1 % (0.1-2.0); Hematocrit 48.4 % (42.0-52.0); Hemoglobin 16.9 g/dL (14.1-18.0); Lymphocytes # 1.1 K/mm3 (0.7-4.5); Lymphocytes % 6.2 % (10-50); Mean Corpuscular Hemoglobin 30.2 pg (27.0-31.2); Mean Corpuscular Volume 86.1 fl (80-94); Mean Platelet Volume 7.6 fl (7.4-10.4); Monocytes # 0.4 K/mm3 (0.1-1.0); Monocytes % 2.4 % (1.7-9.3); Neutrophils # 16.4 K/mm3 (1.8-7.8); Neutrophils % 91.3 % (37.0-80.0); Platelet Count 223 K/mm3 (142-424); Red Blood Count 5.62 M/mm3 (4.60-6.20)
[2019-08-30 07:48] LABS: MANUAL DIFFERENTIAL MANUAL DIFFERENTIAL (MANUAL DIFF)
[2019-08-30 08:41] LABS: Lymphocytes % 3 % (10-50); Monocytes % 6 % (2-9); Neutrophils % 91 % (42-76); Total Cells Counted 100
[2019-08-30 08:42] LABS: Platelet Estimate Normal; RBC Morphology Normal
--- NOTE | 2019-08-30 08:57 | HMH.ACPN2 ---
Internal Medicine - PN: Subj *Date: 08/30/19 *Time: 08:57 Interval history: Patient continues to state his pain is not well controlled though nursing documentation states he slept through the night after getting his meds for 3 to 4 hours at a time. Ambulates independently to the bathroom into the door. Vitals reviewed, mild hypertension but no tachycardia or tachypnea. Labs reviewed this morning, normalized set for elevation in white count which is suspected to be secondary to steroid effect. No nausea in the past 24 hours. No shortness of breath, chest pain, diarrhea. Exam Vital signs and Labs for Last 24 Hours: Temp Pulse Resp BP Pulse Ox 98.7 F 66 16 151/75 H 97 08/30/19 08:00 08/30/19 08:00 08/30/19 08:00 08/30/19 08:00 08/30/19 08:00 Laboratory Results - last 24 hr 08/30/19 07:11: WBC 18.0 H D, RBC 5.62, Hgb 16.9, Hct 48.4, MCV 86.1, MCH 30.2, MCHC 35.0, RDW 13.0, Plt Count 223, MPV 7.6, Neut % (Auto) 91.3 H, Lymph % (Auto) 6.2 L, [place] % (Auto) 2.4, Eos % (Auto) 0.0 L, Baso % (Auto) 0.1, Neut # (Auto) 16.4 H, Lymph # (Auto) 1.1, [place] # (Auto) 0.4, Eos # (Auto) 0.0, Baso # (Auto) 0.0, Total Counted 100, Neutrophils % (Manual) 91 H, Lymphocytes % (Manual) 3 L, Monocytes % (Manual) 6, Platelet Estimate Normal, RBC Morphology Normal 08/30/19 07:11: Sodium 136, Potassium 3.8, Chloride 100, Carbon Dioxide 26, Anion Gap 13.8, BUN 19, Creatinine 0.60 L, Estimated Creat Clear 178, Estimated GFR 145, Est GFR ( Amer) 176, Glucose 173 H, Calcium 9.9, Total Bilirubin 1.1, AST 33 D, ALT 35 D, Alkaline Phosphatase 57, Total Protein 8.2, Albumin 4.8, Globulin 3.4 H, Albumin/Globulin Ratio 1.4 I & O for Last 24 hours: Intake & Output 08/27/19 08/28/19 08/29/19 08/30/19 23:59 23:59 23:59 23:59 Intake Total 1320 / 1320 2884 / 2884 1532 / 1532 Output Total 550 / 550 Balance 1320 / 1320 2884 / 2884 982 / 982 Weight 88.8 kg 83.546 kg 81.873 kg Narrative: Continues to have pain behavior exhibited, assuming the position lying on the left side - *Routine HEENT Exam Head: Present: normocephalic Eye: Present: EOMI, PERRL ENT: Present: mucous membranes moist - *Routine Neck Exam Present: supple. Absent: lymphadenopathy - *Routine Respiratory Exam Present: CTA bilaterally - *Routine Cardiovascular Exam Present: RRR - *Routine Abdominal Exam Present: soft, normoactive bowel sounds. Absent: tenderness - *Routine Extremities Exam Absent: cyanosis, clubbing, edema - Routine Back/Spine/Pelvis Exam Moderate spasticity of left lumbar paraspinal muscles, tender to palpation on exam, patient states hurts the same as before but exam has interval improvement clinically. No tenderness overlying bilateral SI joints. pain most prominent to left lower thoracic region - *Routine Skin Exam Present: warm. Absent: rash - *Routine Neurological Exam Present: alert, oriented X3 Assessment and Plan (1) Intractable pain Current visit: Yes Status: Acute Category: Medical Code(s): R52 - Pain, unspecified (2) Spinal stenosis of thoracic region Current visit: Yes Status: Acute Category: Medical Code(s): M48.04 - Spinal stenosis, thoracic region (3) Intractable vomiting Current visit: Yes Status: Acute Qualifiers: Vomiting type: unspecified Nausea presence: with nausea Qualified Code(s): R11.2 - Nausea with vomiting, unspecified Category: Medical Code(s): R11.10 - Vomiting, unspecified (4) Left flank pain Current visit: Yes Status: Acute Category: Medical Code(s): R10.9 - Unspecified abdominal pain - Assessment and plan all Dx Assessment and Plan for all problems:: Candid discussion with patient today about his Suboxone use which he states he misunderstood yesterday. Last took it the day before admission to hospital. Patient's Fernie reviewed, appears to obtain Subutex prescription every 2 months. Prescribed for twice daily but states he only madina
--- NOTE | 2019-08-30 11:32 | PC.NURSE ---
HEAT PACK APPLIED PER MAR, PATIENT IS RESTING WITH EYES CLOSED AND STATES THAT PAIN LEVEL IS BETTER. PT STATES THAT HE IS COMFORTABLE. WILL CONTINUE TO MONITOR.
--- NOTE | 2019-08-30 15:37 | PC.NURSE ---
TRANSPORTED PT TO PAIN MANAGEMENT CLINIC VIA WHEELCHAIR.
--- NOTE | 2019-08-30 15:53 | P.PCN_ITS ---
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 Low back pain and left-sided hip pain with sacroiliitis Post-procedure Diagnosis:: Same Indications for Procedure:: This patient is a pleasant 44-year-old white male who we were called upon by Dr. Cote. He was admitted with increasing low back pain left-sided flank and hip pain. He does have herniated disc at T11-T12. I talked to Dr. Cote this morning and we decided that he may benefit from a thoracic epidural steroid injection to help with his acute pain symptoms on his left flank. He was also examined by my nurse practitioner yesterday. He is tender over his left SI michelle nt. He does have a positive Romulo test on left side. Is positive Beba's test on left side. He has positive SI joint compression test. I believe he would also benefit from a left SI joint injection. We will do both today. Procedure Details:: Thoracic epidural steroid injection under fluoroscopy Informed consent was obtained the risk and benefits of the procedure were explained to the patient. Patient was taken to the procedure room. Back was prepped using ChloraPrep. The skin and subtenons tissues were anesthetized using lidocaine. A 17-gauge epidural needle was placed into the T11-T12 interspace. After confirmation needle placement in the epidural space with dye, we injected 2 mL's lidocaine 1.5% and Depo-Medrol 80 mg into the thoracic epidural space. Patient tolerated the procedure well with no complications. Left SI joint injection under fluoroscopy Informed consent was obtained and the risks and benefits of the procedure was explained to the patient. Patient was taken to the procedure room. Patient was placed prone on the procedure table. The left hip was prepped using ChloraPrep. The skin and subcutaneous tissues were anesthetized using lidocaine. I placed a 22-gauge spinal needle into the inferior aspect of the left SI joint. Needle placement was confirmed with dye. After this we injected 5 mL bupivacaine 0.25% and Depo-Medrol 40 mg into the left SI joint. The patient tolerated the procedure well with no complication. Plan and Disposition:: Thank you for the consult. We will follow-up with him as needed.
--- NOTE | 2019-08-30 16:33 | PC.NURSE ---
PT. HAS RETURNED TO THE FLOOR FROM THE PAIN CLINIC VIA WHEELCHAIR.
--- NOTE | 2019-08-30 16:46 | PC.NURSE ---
PT STATES THAT PAIN HAS NOT BEEN RELIEVED FROM SPINAL INJECTION, SITE IS FREE FROM BRUISING, SWELLING, AND BLEEDING. PT TOLERATES AMBULATION FROM CHAIR TO BED, NO WEAKNESS OR NUMBNESS NOTED IN EXTREMITIES BILATERALLY, CAP REFILL WNL, PT STATED THAT HEAT HAS HELPED HIS PAIN, PT WAS NOTED TO BE RESTING WITH EYES CLOSED THIS AFTERNOON FOR ABOUT 2 HOURS, VSS, WILL CONTINUE TO MONITOR.
--- NOTE | 2019-08-30 19:03 | PC.NURSE ---
report given to tu
[2019-08-31] VITALS (7 sets, daily range): BP systolic 162–180; BP diastolic 87–97; PULSE 60–69; RESP 16–18; TEMP 36.6–36.9; O2SAT 95–96; BMI 27.1
--- NOTE | 2019-08-31 05:03 | ECG_ITS ---
APPROVED REPORT Exam: Resting ECG HR:62 bpm ECG Measurements Heart Rate 62 AXES IL 164 P 20 QRSd 88 QRS -5 QT 394 T 6 QTc 399 <Conclusion> Normal sinus rhythm T wave abnormality, consider anterior ischemia Abnormal ECG Electronically signed by : Kirby Ramirez, 08/31/2019 12:13:48
[2019-08-31 06:09] LABS: Basophils % 0.1 % (0.1-2.0); Eosinophils # 0.1 K/mm3 (0.0-0.4); Eosinophils % 0.6 % (0.1-12.0); Hematocrit 48.7 % (42.0-52.0); Hemoglobin 16.9 g/dL (14.1-18.0); Lymphocytes # 1.4 K/mm3 (0.7-4.5); Mean Corpuscular HGB Conc 34.7 g/dL (31.8-35.4); Mean Corpuscular Hemoglobin 30.3 pg (27.0-31.2); Mean Corpuscular Volume 87.4 fl (80-94); Mean Platelet Volume 7.3 fl (7.4-10.4); Monocytes # 0.9 K/mm3 (0.1-1.0); Monocytes % 5.2 % (1.7-9.3); Neutrophils # 14.7 K/mm3 (1.8-7.8); Neutrophils % 86.1 % (37.0-80.0); Platelet Count 222 K/mm3 (142-424); Red Blood Count 5.57 M/mm3 (4.60-6.20); Red Cell Distribution Width 12.7 % (11.5-17.5); White Blood Count 17.1 K/mm3 (4.8-10.8)
[2019-08-31 06:12] LABS: Chloride 100 mmol/L (98-107); Sodium 134 mmol/L (136-145)
[2019-08-31 06:14] LABS: MANUAL DIFFERENTIAL MANUAL DIFFERENTIAL (MANUAL DIFF)
[2019-08-31 06:15] LABS: Blood Urea Nitrogen 21 mg/dl (9-20); Creatinine Clearance Estimated 197 mL/min (50-200); Estimated Glomerular Filt Rate 145 ml/min (>60); GFR (African American) 176 ML/MIN (>60)
[2019-08-31 06:16] LABS: Calcium 9.3 mg/dl (8.4-10.2); Carbon Dioxide 26 mmol/L (22.0-30.0); Glucose 146 mg/dl (74-100)
[2019-08-31 06:19] LABS: Lymphocytes % 9 % (10-50); Neutrophils % 86 % (42-76); Platelet Estimate Normal; RBC Morphology Normal; Total Cells Counted 100; Toxic Granulation 1+
[2019-08-31 06:28] LABS: Troponin I 0.02 ng/ml (0.00-0.034)
--- NOTE | 2019-08-31 07:20 | PC.NURSE ---
0500- Pt c/o cp to [facility]. Pt assessed along w/ his RN. Pt stated a dull cp rating 8/10. No N/V, sweating, dizziness, SOA, or radiating pain reported. 0504- EKG obtained by staff 0508-EKG read by MD Walter in ED as NSR 0518- Vitals obtained 0520- MD Kera paged and orders obtained for aspirin 324mg PO,CBC,BMP,Trop x2. If 1st trop was neg, then give 6.25mg captopril PO once for BP. Heart monitor ordered. No order for CXR or nitro. 0530-324mg aspirin given 0545- 2nd IV access obtained. #18g in right forearm 0550- CBC,BMP,Trop collected by this RN and sent to lab. Pt also stating pain is not so bad anymore at this time. 0700-Captopril 6.25mg given. Pt reports no cp but continues to complain of left flank pain at this time. He is also requesting a regular breakfast tray.
--- NOTE | 2019-08-31 07:24 | HMH.DCSUM ---
General - General Admission date:: 08/28/19 Discharge date: 08/31/19 HPI HPI: 44-year-old generally healthy male who presented to the emergency department today for the second time in 24 hours with intractable left flank pain. He reports that the pain started fairly insidiously 48 hours ago and may have been associated with lifting an elderly, obese neighbor who falls frequently. He noticed that the pain was worse Monday night with some nausea, and late in the evening Monday [id number] to the emergency department with intractable left flank pain. Significant work-up was undertaken, no etiology of the pain was found and patient was discharged with some pain medication. This has not helped and is come back to the emergency department today with intractable vomiting, nausea, and significant pain in the left flank that radiates around into the left lateral flank stopping at about the anterior axillary line just below the level of the umbilicus but does not go into the abdomen. He reports nausea only because of the pain and has not been afflicted with GI symptoms before this episode. He denies numbness into the hands or the feet. He denies rash. He denies recent ill contacts. He denies trauma, falls or fever. Past history is otherwise negative although he does have occasional regular back pain. Hospital Course Hospital Course: 44-year-old gentleman who admitted for intractable pain in his back and intractable nausea and vomiting. Had limited response to aggressive IV pain meds, anxiolytics, muscle relaxers, and steroids. Imaging of his back showed T11/T12 spinal stenosis with left foraminal narrowing. This correlated with his site of pain. During course of hospitalization he declined to ambulate much due to report of pain. Clinically however his exam showed gradual improvement during hospitalization. Pain management was consulted for assistance with spinal stenosis and radicular symptoms. Injections performed at both T11/T12 site of pain and SI joint which was positive for pain per their exams. Patient's response was nominal prior to discharge. Given that he had no neurologic deficits, nausea and vomiting resolved, ambulating independently, tolerating good p.o. intake, and able to transition all therapies including muscle relaxer, steroids, analgesics, anti-inflammatories to oral, patient met criteria for discharge home. Continues to complain of pain however clinically vitals have been stable, exam improved, and on an oral regimen for continued therapy as an outpatient while injections take full effect. Did develop elevated blood pressure during admission. Treated acutely with captopril which helped to decrease his hypertension. Initiated on low-dose lisinopril to continue as an outpatient with plan for follow-up either with our office or his previous PCP. We will place order for outpatient physical therapy to assist in aiding with patient's muscle spasticity and low back pain Objective Vital signs: Temp Pulse Resp BP Pulse Ox 97.8 F 63 16 168/97 H 96 08/31/19 04:00 08/31/19 07:04 08/31/19 04:00 08/31/19 07:04 08/31/19 07:04 Narrative: Continues to have pain behavior exhibited, assuming the position lying on the left side - *Routine HEENT Exam Head: Present: normocephalic Eye: Present: EOMI, PERRL ENT: Present: mucous membranes moist - *Routine Neck Exam Present: supple. Absent: lymphadenopathy - *Routine Respiratory Exam Present: CTA bilaterally - *Routine Cardiovascular Exam Present: RRR - *Routine Abdominal Exam Present: soft, normoactive bowel sounds. Absent: tenderness - *Routine Extremities Exam Absent: cyanosis, clubbing, edema - Routine Back/Spine/Pelvis Exam intervally improved mild spasticity of left lumbar paraspinal muscles, minimal tenderness to palpation on exam, patient states hurts but exam has interval improvement clinically. not withdrawing from p
[2019-08-31 09:51] LABS: Troponin I 0.01 ng/ml (0.00-0.034)
--- NOTE | 2019-08-31 10:34 | HMH.PHAINT ---
DISCHARGE COUNSELING COMPLETED ON PATIENT. NEW PRESCRIPTIONS INCLUDE GABAPENTIN, TIZANIDINE, LISINOPRIL, PERCOCET, DEXAMETHASONE, LIDOCAINE PATCHES, TORADOL, AND OMEPRAZOLE. ALL NEW PRESCRIPTIONS WERE SENT TO [facility] IN [place]. PATIENT VERBALIZED UNDERSTANDING AND HAD NO QUESTIONS AT THIS TIME. -FRACISCO REARDON, ESTRELLAD
== END 2019-08-31 10:32 | disposition home or self-care (01) ==
LOC: ER 12:27 → 2ND 12:35
PROVIDERS: Internal Medicine Adolescent Medicine; Admitting Provider Internal Medicine Adolescent Medicine; Emergency Provider Emergency Medicine; Visit Provider Internal Medicine Adolescent Medicine
DX: M48.04 Spinal stenosis, thoracic region (principal); Z87.891 Personal history of nicotine dependence; Z79.899 Other long term (current) drug therapy; F11.11 Opioid abuse, in remission
CPT/HCPCS: 36415; 62321; 72146; 74177; 80048; 80053; 82150; 83690; 84484; 85007; 85025; 93005; 96365; 96375; 99284; G0378; J1040; J2405; Q9966; Q9967

== ENCOUNTER 2019-09-02 23:10 | Emergency (ER) | payer OTHER, SELFPAY ==
--- NOTE | 2019-09-02 | ECG_ITS ---
APPROVED REPORT Exam: Resting ECG HR:66 bpm ECG Measurements Heart Rate 66 AXES [place] 132 P 16 QRSd 90 QRS 87 QT 394 T 38 QTc 413 <Conclusion> Normal sinus rhythm Normal ECG Electronically signed by : Kirby Ramirez, 09/03/2019 18:59:18
[2019-09-02 23:10] VITALS: BP 166/98; PULSE 67; RESP 16; TEMP 36.6; O2SAT 98; BMI 25.7
[2019-09-02 23:23] LABS: Basophils % 0.2 % (0.1-2.0); Eosinophils # 0.2 K/mm3 (0.0-0.4); Hemoglobin 17.8 g/dL (14.1-18.0); Lymphocytes # 2.9 K/mm3 (0.7-4.5); Lymphocytes % 16.8 % (10-50); Mean Corpuscular HGB Conc 35.7 g/dL (31.8-35.4); Mean Corpuscular Volume 86.9 fl (80-94); Mean Platelet Volume 7.2 fl (7.4-10.4); Monocytes # 1.1 K/mm3 (0.1-1.0); Monocytes % 6.7 % (1.7-9.3); Neutrophils # 12.9 K/mm3 (1.8-7.8); Neutrophils % 75.3 % (37.0-80.0); Platelet Count 271 K/mm3 (142-424); Red Blood Count 5.75 M/mm3 (4.60-6.20); Red Cell Distribution Width 12.5 % (11.5-17.5); White Blood Count 17.1 K/mm3 (4.8-10.8)
[2019-09-02 23:25] LABS: MANUAL DIFFERENTIAL MANUAL DIFFERENTIAL (MANUAL DIFF)
[2019-09-02 23:30] VITALS: BP 152/81; PULSE 70; RESP 18; O2SAT 98
[2019-09-02 23:32] LABS: Chloride 93 mmol/L (98-107); Potassium 4.2 mmoL/L (3.5-5.1); Sodium 132 mmol/L (136-145)
[2019-09-02 23:35] LABS: Anion Gap 12.2 mEq/L (5-15); Blood Urea Nitrogen 21 mg/dl (9-20); Calcium 9.6 mg/dl (8.4-10.2); Carbon Dioxide 31 mmol/L (22.0-30.0); Creatinine Clearance Estimated 169 mL/min (50-200); Estimated Glomerular Filt Rate 121 ml/min (>60); GFR (African American) 147 ML/MIN (>60); Glucose 121 mg/dl (74-100)
--- NOTE | 2019-09-02 23:35 | HMH.EDCP ---
ED Disposition Clinical Impression: Gastritis Qualifiers: Gastritis type: unspecified gastritis Chronicity: acute Gastritis bleeding: without bleeding Qualified Code(s): K29.00 - Acute gastritis without bleeding Disposition: Home, Self-Care Condition on Discharge: Good Instructions: DI for Gastritis Additional Instructions: use meds and see pcp for follo wup Prescriptions: Sucralfate [Carafate 1gm Tab] 1 gm PO ACHS #60 tab Transmission Status: Pending to [id number] Referrals: Provider,MD Kota [Primary Care Provider] - Eliu Brooks MD [Staff Physician] - - Critical Care Critical Care Time: No Attestation: On 09/02/19, the high probability of a clinically significant, sudden or life threatening deterioration of the following system(s) required my full and direct attention, intervention and personal management. The time I documented below is in addition to time spent performing reported procedures but includes the following listed in this critical care notation. Medical Decision Making - Medical Records Medical records reviewed: Yes: I reviewed the patient's medical records. - Fernie Inquiry Pt receiving controlled substance: No Vital Signs: 09/02/19 23:10 09/02/19 23:30 09/03/19 00:00 Temperature 97.8 F Temperature Source Oral Pulse Rate [Left Radial] 67 70 64 Respiratory Rate 16 18 18 Blood Pressure [Right Arm] 166/98 H 152/81 H 151/83 H Blood Pressure Mean [Right Arm] 120 104 105 Blood Pressure Source [Right Arm] Manual Cuff/ Auscultation Automatic Cuff Automatic Cuff Blood Pressure Position [Right Arm] Supine Supine Supine 02 Sat by Pulse Oximetry 98 98 94 L Oxygen Delivery Method Room Air Room Air Room Air 09/03/19 00:55 Temperature Temperature Source Pulse Rate [Left Radial] 59 L Respiratory Rate 16 Blood Pressure [Right Arm] 128/75 Blood Pressure Mean [Right Arm] 92 Blood Pressure Source [Right Arm] Automatic Cuff Blood Pressure Position [Right Arm] Sitting 02 Sat by Pulse Oximetry 95 Oxygen Delivery Method Room Air - Lab Data Lab results reviewed: Yes: I reviewed the patient's lab results. Lab Results 09/02/19 23:10: WBC 17.1 H, RBC 5.75, Hgb 17.8, Hct 50.0, MCV 86.9, MCH 31.0, MCHC 35.7 H, RDW 12.5, Plt Count 271, MPV 7.2 L, Neut % (Auto) 75.3, Lymph % (Auto) 16.8, [place] % (Auto) 6.7, Eos % (Auto) 1.0, Baso % (Auto) 0.2, Neut # (Auto) 12.9 H, Lymph # (Auto) 2.9, [place] # (Auto) 1.1 H, Eos # (Auto) 0.2, Baso # (Auto) 0.0, Total Counted 100, Neutrophils % (Manual) 77 H, Lymphocytes % (Manual) 21, Monocytes % (Manual) 1 L, Eosinophils % (Manual) 1, Platelet Estimate Normal, RBC Morphology Normal 09/02/19 23:10: Sodium 132 L, Potassium 4.2, Chloride 93 L, Carbon Dioxide 31 H, Anion Gap 12.2, BUN 21 H, Creatinine 0.70, Estimated Creat Clear 169, Estimated GFR 121, Est GFR ( Amer) 147, Glucose 121 H, Calcium 9.6, Troponin I < 0.01 09/02/19 23:10: Total Bilirubin 0.8, Direct Bilirubin 0.1, Conjugated Bilirubin 0.0, Indirect Bilirubin 0.7, Unconjugated Bilirubin 0.7, AST 27, ALT 25, Alkaline Phosphatase 57, Total Protein 8.2, Albumin 4.5, Amylase 62, Lipase 28 09/02/19 23:54: C-Reactive Protein 4.6 H Result diagrams: 09/02/19 23:10 09/02/19 23:10 Orders (Tests/Meds): ED MEDICATIONS Generic Name Dose Route Start Last Admin Trade Name Freq PRN Reason Stop Dose Admin Sodium Chloride 1,000 mls @ 999 mls/hr 09/02/19 23:30 09/02/19 23:25 Sod Chlor 0.9% 1000ml Bag IV 09/03/19 00:30 999 mls/hr .Q1H1M LINA Administration Sodium Chloride 8 ml 09/02/19 23:33 09/02/19 23:40 Sodium Chloride 0.9% 10ml Vial IV 10/02/19 23:32 8 ml NEEDED PRN Administration dilute pepcid Discontinued Medications Generic Name Dose Route Start Last Admin Trade Name Freq PRN Reason Stop Dose Admin Aspirin 324 mg 09/02/19 23:17 09/02/19 23:25 Aspirin 81mg Chewable Tablet PO 09/02/19 23:18 324 mg ONCE ONE Administration Diatrizoate Meglu
[2019-09-02 23:41] LABS: Amylase 62 U/L (30-110)
[2019-09-02 23:42] LABS: Alanine Aminotransferase 25 U/L (12-78); Albumin Level 4.5 g/dl (3.5-5.0); Alkaline Phosphatase 57 U/L (38-126); Aspartate Amino Transferase 27 U/L (17-59); Bilirubin,Direct 0.1 mg/dl (0.0-0.4); Bilirubin,Indirect 0.7 mg/dL (0.0-0.9); Bilirubin,Total 0.8 mg/dl (0.2-1.3); Bilirubin,Unconjugated 0.7 mg/dL (0.0-1.1); Lipase 28 U/L (23-300); Total Protein,Serum 8.2 g/dl (6.3-8.2)
[2019-09-03] VITALS: BP 151/83; PULSE 64; RESP 18; O2SAT 94
[2019-09-03 00:01] LABS: Troponin I < 0.01 ng/ml (0.00-0.034)
--- NOTE | 2019-09-03 00:13 | XR_ITS ---
PROCEDURE: XR CHEST 2V CLINICAL HISTORY: chest pain , UPPER ABDOMEN PAIN Epigastric pain COMPARISON: Chest from 08/20/2018 XR CHEST 2V from 08/28/2019 FINDINGS: The cardiomediastinal silhouette and pulmonary vascularity are within normal limits. Calcified granuloma is present in the right midlung. The remaining lungs are clear. No acute bony abnormalities. IMPRESSION: No acute findings. Dictated by: Huber Mak MD 09/03/2019 07:44 Electronically signed by Huber Mak MD in [place] 09/03/2019 07:44
--- NOTE | 2019-09-03 00:13 | CT_ITS ---
PROCEDURE: CT ABDOMEN PELVIS W CON CLINICAL INDICATION: abd. pain Abdominal pain, epigastric pain COMPARISON: CT ABDOMEN PELVIS W CON from 08/28/2019 TECHNIQUE: IV Contrast: 75ML OPTIRAY 350 Oral Contrast 10ml Gastroview Axial images obtained with sagittal and coronal reformats. All CT scans at the facility use one or more dose reduction, viz: automated exposure control, ma/kV adjustment per patient size (including targeted exams where dose is matched to indication, i.e. head), or iterative reconstruction technique. FINDINGS: LOWER THORAX: No acute finding ABDOMEN & PELVIS: The liver, gallbladder, pancreas, and adrenal glands have an unremarkable appearance. There is borderline splenomegaly at 13 cm with punctate calcification in the spleen. There is mild nonspecific thickening of the distal esophagus. There is also thickening the gastric mucosa in the fundus and proximal body possibly due to nondistention. There is also thickening of the pyloric region of the stomach and duodenal bulb with some minimal perigastric and proximal duodenal fat stranding. Moderate amount of retained colonic feces. No renal or ureteral calculi. No hydronephrosis. Moderate amount of retained colonic feces. No evidence of appendicitis, intestinal obstruction, free air, or other significant anomaly. There is a tiny fat containing umbilical hernia IMPRESSION: 1. Nonspecific thickening of the stomach and duodenum which may reflect gastritis and duodenitis versus nondistention. 2. Moderate amount of retained colonic feces. 3. Borderline splenomegaly Dictated by: Huber Mak MD 09/03/2019 08:03 Electronically signed by Huber Mak MD in [place] 09/03/2019 08:03
[2019-09-03 00:17] LABS: Eosinophils % 1 % (0-3); Lymphocytes % 21 % (10-50); Monocytes % 1 % (2-9); Neutrophils % 77 % (42-76); Platelet Estimate Normal; RBC Morphology Normal; Total Cells Counted 100
[2019-09-03 00:33] LABS: C-Reactive Protein 4.6 mg/L (0-4)
--- NOTE | 2019-09-03 00:46 | PC.NURSE ---
pt returned from RAD
[2019-09-03 00:55] VITALS: BP 128/75; PULSE 59; RESP 16; O2SAT 95
[2019-09-03 01:19] VITALS: BP 119/75; PULSE 62; RESP 16; TEMP 36.6; O2SAT 97
== END 2019-09-03 01:21 | disposition home or self-care (01) ==
PROVIDERS: Emergency Provider Emergency Medicine
DX: K29.00 Acute gastritis without bleeding (principal); R73.9 Hyperglycemia, unspecified; I10 Essential (primary) hypertension; Z87.891 Personal history of nicotine dependence; Z87.442 Personal history of urinary calculi; Z79.899 Other long term (current) drug therapy
CPT/HCPCS: 71046; 74177; 80048; 80076; 82150; 83690; 84484; 85007; 85025; 86140; 93005; 96365; 96375; 99284; Q9967

== ENCOUNTER 2019-09-16 07:49 | Emergency (ER) | payer OTHER, SELFPAY ==
[2019-09-16 07:51] VITALS: BP 153/81; PULSE 64; RESP 16; TEMP 36.6; O2SAT 98; BMI 27.1
--- NOTE | 2019-09-16 08:10 | CT_ITS ---
PROCEDURE: CT ABDOMEN PELVIS W CON CLINICAL INDICATION: abd pain, hx Crohns/ileitis Bilateral flank pain, abdominal pain COMPARISON: CT ABDOMEN PELVIS W CON from 09/03/2019 TECHNIQUE: IV Contrast: 75ML OPTIRAY 350 Oral Contrast None Axial images obtained with sagittal and coronal reformats. All CT scans at the facility use one or more dose reduction, viz: automated exposure control, ma/kV adjustment per patient size (including targeted exams where dose is matched to indication, i.e. head), or iterative reconstruction technique. FINDINGS: LOWER THORAX: Patchy density noted in the right lung base medially adjacent to a prominent osteophyte of the thoracic spine. This was not present on the previous study and suspicious for area of pneumonitis. ABDOMEN & PELVIS: The liver has an unremarkable appearance. There is mild splenomegaly at 14 cm. The adrenal glands and pancreas have an unremarkable appearance. There are few small lymph nodes in the celiac region and portal area. There is a sub cm cortical renal cyst on the right. No renal or ureteral calculi are evident. No intestinal obstruction or free air. No evidence of appendicitis or diverticulitis. There are few colonic diverticula without evidence of diverticulitis. No inflammatory changes evident of the small bowel. IMPRESSION: No acute abdominal or pelvic findings. Possible developing patchy infiltrate in the right lung base Mild splenomegaly Dictated by: Huber Mak MD 09/16/2019 09:53 Electronically signed by Huber Mak MD in [place] 09/16/2019 09:53
--- NOTE | 2019-09-16 08:14 | HMH.EDGENADL ---
ED Disposition Clinical Impression: Nausea Abdominal pain Qualifiers: Abdominal location: left lower quadrant Qualified Code(s): R10.32 - Left lower quadrant pain Disposition: Home, Self-Care Condition on Discharge: Good Instructions: DI for Acute Abdomen Additional Instructions: Follow-up with your PCP. Zofran as needed for nausea. If you have any new, changing, worsening, or concerning symptoms, come back to the emergency department. Prescriptions: Ondansetron [Zofran 4mg ODT] 4 mg PO Q8H PRN 2 Days #6 tab.rapdis PRN Reason: Nausea Transmission Status: Pending to [facility] Referrals: Billy Simpson MD [Primary Care Provider] - - Critical Care Critical Care Time: No Attestation: On 09/16/19, the high probability of a clinically significant, sudden or life threatening deterioration of the following system(s) required my full and direct attention, intervention and personal management. The time I documented below is in addition to time spent performing reported procedures but includes the following listed in this critical care notation. Medical Decision Making - Medical Records Medical records reviewed: Yes: I reviewed the patient's medical records. MR Comment: 44-year-old male with a history of possible ileitis presents emergency department with left lower quadrant and flank pain, worsening over the last 2 days. He arrives to the ED hemodynamically stable, nontoxic, with reassuring vital signs, and looks well on exam. He has mild tenderness in the left lower quadrant but otherwise unremarkable exam. He has chronic back pain, but has no red flag symptoms of back pain such as leg weakness/groin anesthesia/etc. Given his history, will get labs including CT of the abdomen pelvis, treat with morphine and Zofran and fluid bolus and reassess. On reAssessment, patient remains well. He continues to complain of pain and states the only thing that helps his pain is Dilaudid. I gave him 1 dose while awaiting his results. Patient's labs and CT were personally reviewed and are nonactionable at this time. His CRP is negative. I reassessed the patient again, and he continues to complain of pain. Due to intractable pain I spoke to his PCP, who was willing to observation admit him for this, however, since there is concern that he has had multiple evaluations and complaints of pain issues, we will try something other than narcotics. He was given ketorolac and Solu-Medrol. I explained to patient that we would be happy to admit him for further observation and pain control, however he does not want to stay. Given that he is feeling better and tolerating p.o., I think this is reasonable. Given strict return precautions and discharge instructions including the need for close follow-up and he verbalizes an understanding and agreement to the plan. Safe to discharge. - Fernie Inquiry Pt receiving controlled substance: No Vital Signs: 09/16/19 07:51 09/16/19 08:32 09/16/19 09:21 Temperature 98 F Temperature Source Oral Pulse Rate [Left Radial] 64 60 60 Respiratory Rate 16 Blood Pressure [Right Arm] 153/81 H 141/82 H 186/84 H Blood Pressure Mean [Right Arm] 105 101 118 Blood Pressure Source [Right Arm] Automatic Cuff Automatic Cuff Blood Pressure Position [Right Arm] Sitting Sitting Sitting 02 Sat by Pulse Oximetry 98 97 99 Oxygen Delivery Method Room Air Room Air Room Air 09/16/19 10:30 Temperature Temperature Source Pulse Rate [Left Radial] 70 Respiratory Rate Blood Pressure [Right Arm] 198/100 H Blood Pressure Mean [Right Arm] 132 Blood Pressure Source [Right Arm] Automatic Cuff Blood Pressure Position [Right Arm] Supine 02 Sat by Pulse Oximetry 96 Oxygen Delivery Method Room Air - Lab Data Lab Results 09/16/19 08:10: WBC 6.3, RBC 4.86, Hgb 14.9, Hct 43.6, MCV 89.7, MCH 30.7, MCHC 34.2, RDW 13.6, Plt Count 242, MPV 7.7, Neut % (Auto) 67.7, Lymph % (Auto) 23.3, [place] % (Auto) 5.2, Eos % (Aut
[2019-09-16 08:17] LABS: Basophils % 0.7 % (0.1-2.0); Eosinophils # 0.2 K/mm3 (0.0-0.4); Eosinophils % 3.1 % (0.1-12.0); Hematocrit 43.6 % (42.0-52.0); Hemoglobin 14.9 g/dL (14.1-18.0); Lymphocytes # 1.5 K/mm3 (0.7-4.5); Lymphocytes % 23.3 % (10-50); Mean Corpuscular HGB Conc 34.2 g/dL (31.8-35.4); Mean Corpuscular Hemoglobin 30.7 pg (27.0-31.2); Mean Corpuscular Volume 89.7 fl (80-94); Mean Platelet Volume 7.7 fl (7.4-10.4); Monocytes # 0.3 K/mm3 (0.1-1.0); Monocytes % 5.2 % (1.7-9.3); Neutrophils # 4.3 K/mm3 (1.8-7.8); Neutrophils % 67.7 % (37.0-80.0); Platelet Count 242 K/mm3 (142-424); Red Blood Count 4.86 M/mm3 (4.60-6.20); Red Cell Distribution Width 13.6 % (11.5-17.5); White Blood Count 6.3 K/mm3 (4.8-10.8)
[2019-09-16 08:21] LABS: Chloride 100 mmol/L (98-107); Sodium 139 mmol/L (136-145)
[2019-09-16 08:22] LABS: Potassium 4.2 mmoL/L (3.5-5.1)
[2019-09-16 08:24] LABS: Alanine Aminotransferase 32 U/L (12-78); Anion Gap 14.2 mEq/L (5-15); Aspartate Amino Transferase 28 U/L (17-59); Bilirubin,Total 0.5 mg/dl (0.2-1.3); Blood Urea Nitrogen 9 mg/dl (9-20); Carbon Dioxide 29 mmol/L (22.0-30.0); Creatinine Clearance Estimated 197 mL/min (50-200); Estimated Glomerular Filt Rate 145 ml/min (>60); GFR (African American) 176 ML/MIN (>60)
[2019-09-16 08:25] LABS: Albumin Level 4.4 g/dl (3.5-5.0); Albumin/Globulin Ratio 1.5 (1.1-1.8); Calcium 9.6 mg/dl (8.4-10.2); Globulin 2.9 g/dL (1.3-3.2); Glucose 125 mg/dl (74-100); Total Protein,Serum 7.3 g/dl (6.3-8.2)
[2019-09-16 08:28] LABS: Alkaline Phosphatase 53 U/L (38-126)
[2019-09-16 08:29] LABS: C-Reactive Protein 1.6 mg/L (0-4)
[2019-09-16 08:32] VITALS: BP 141/82; PULSE 60; O2SAT 97
--- NOTE | 2019-09-16 08:33 | PC.NURSE ---
Pt laying in position of comfort at this time with mother at bedside. No immediate needs noted.
--- NOTE | 2019-09-16 08:46 | PC.NURSE ---
pt states pain 8/10 after pain medication, MD de jesus
--- NOTE | 2019-09-16 08:54 | PC.NURSE ---
Pt to rad.
[2019-09-16 09:00] LABS: Lactic Acid 1.3 mmol/L (0.7-2.1)
--- NOTE | 2019-09-16 09:16 | PC.NURSE ---
Pt returned from rad.
[2019-09-16 09:21] VITALS: BP 186/84; PULSE 60; O2SAT 99
[2019-09-16 09:34] LABS: Microscopic, Urine URINE MICROSCOPIC (MICROSCOPIC)
[2019-09-16 09:35] LABS: Appearance,Urine CLEAR (Clear); Bilirubin,Urine Negative (Negative); Blood, Urine Negative (Negative); Color,Urine YELLOW (Yellow); Glucose,Urine (UA) Negative (Negative); Ketones,Urine Negative (Negative); Leukocyte Esterase,Urine Negative (Negative); Nitrate,Urine Negative (Negative); Protein,Urine Negative (Negative); Urobilinogen,Urine 0.2 EU/dl (0.2)
[2019-09-16 09:41] LABS: WBC,Urine Occasional #/hpf (0-3)
[2019-09-16 10:30] VITALS: BP 198/100; PULSE 70; O2SAT 96
--- NOTE | 2019-09-16 10:50 | PC.NURSE ---
waiting education assistant back from dr. virk office
--- NOTE | 2019-09-16 11:30 | PC.NURSE ---
VICKI BLANK speaking with Dr. Simpson
[2019-09-16 13:02] VITALS: BP 154/85; PULSE 63; RESP 18; TEMP 36.7; O2SAT 96
== END 2019-09-16 13:04 | disposition home or self-care (01) ==
PROVIDERS: Emergency Provider Emergency Medicine; PCP Internal Medicine Adolescent Medicine
DX: R10.32 Left lower quadrant pain (principal); Z87.891 Personal history of nicotine dependence; F12.10 Cannabis abuse, uncomplicated; F19.10 Other psychoactive substance abuse, uncomplicated
CPT/HCPCS: 74177; 80053; 81001; 83605; 85025; 86140; 96365; 96375; 99284; J2405; Q9967

== ENCOUNTER 2019-09-18 00:26 | Emergency (ER) | payer MEDICAID, SELFPAY ==
[2019-09-18 00:27] VITALS: BP 175/106; PULSE 72; RESP 16; TEMP 36.6; O2SAT 100; BMI 27.1
--- NOTE | 2019-09-18 00:35 | PC.NURSE ---
Pt tearful, rolling around in bed. MD at bedside. Pt requested pain medication. MD informed the pt that he would not be getting narcotics but instead out be getting some steroids, torodol and a muscle relaxer to reduce the pts pain at the source of the problem.
--- NOTE | 2019-09-18 00:45 | HMH.EDBACK ---
ED Disposition Clinical Impression: Back pain Disposition: Home, Self-Care Condition on Discharge: Fair Instructions: DI for Low Back Pain Prescriptions: Cyclobenzaprine HCl [Flexeril 10mg tablet] 10 mg PO Q8HP PRN 30 Days #90 tab PRN Reason: Muscle Spasm Transmission Status: Pending to [facility] methylPREDNISolone [Medrol 4mg tab] 4 mg PO DIRECTED #21 tab Transmission Status: Pending to [facility] Diclofenac Sodium [Voltaren 100gm Topical Gel] 1 applicatio TP Q4-6H PRN #100 gm PRN Reason: Moderate Pain Transmission Status: Pending to [facility] Referrals: PCP,No [Primary Care Provider] - Time of Disposition: 01:43 - Critical Care Critical Care Time: No Attestation: On , the high probability of a clinically significant, sudden or life threatening deterioration of the following system(s) required my full and direct attention, intervention and personal management. The time I documented below is in addition to time spent performing reported procedures but includes the following listed in this critical care notation. Medical Decision Making - Medical Records Medical records reviewed: Yes: I reviewed the patient's medical records. MR Comment: pt stated he was on the toilet when he went to wipe his back started to spasm, His mother also states he helped to lift someone and back pain got worse. he has chronic back pain and he is waiting to see a pain clinic, He was in the ER a few days ago and received narcotics. Given him Toradol Depo-Medrol and Flexeril. Reviewed recent MRI which shows lateral disc protrusion at the level of T11-T12. Plan is To discharge patient home with prescriptions for anti-inflammatory medicines, a steroid Dosepak and Voltaren jell as well as Flexeril, muscle relaxant. Patient and family have been advised that narcotics are addictive and not being prescribed today - Fernie Inquiry Pt receiving controlled substance: No Vital Signs: 09/18/19 00:27 Temperature 97.8 F Temperature Source Oral Pulse Rate [Left Radial] 72 Respiratory Rate 16 Blood Pressure [Right Arm] 175/106 H Blood Pressure Mean [Right Arm] 129 Blood Pressure Source [Right Arm] Automatic Cuff Blood Pressure Position [Right Arm] Sitting 02 Sat by Pulse Oximetry 100 Oxygen Delivery Method Room Air Orders (Tests/Meds): ED MEDICATIONS Generic Name Dose Route Start Last Admin Trade Name Opal PRN Reason Stop Dose Admin Sodium Chloride 1,000 mls @ 999 mls/hr 09/18/19 01:00 Sod Chlor 0.9% 1000ml Bag IV 09/18/19 02:00 .Q1H1M LINA Discontinued Medications Generic Name Dose Route Start Last Admin Trade Name Opal PRN Reason Stop Dose Admin Cyclobenzaprine HCl 10 mg 09/18/19 00:45 Flexeril 10mg Tablet PO 09/18/19 00:46 ONCE ONE Dexamethasone Sodium Phosphate 8 mg 09/18/19 00:45 09/18/19 00:48 Decadron 4mg/Ml 1ml Vial IM 09/18/19 00:46 Not Given ONCE ONE Ketorolac Tromethamine 60 mg 09/18/19 00:45 09/18/19 00:49 Toradol 60mg/2ml Vial IM 09/18/19 00:46 Not Given ONCE ONE Ketorolac Tromethamine 30 mg 09/18/19 00:49 Toradol 30mg/Ml Vial IV 09/18/19 00:50 ONCE ONE Methylprednisolone Sodium Succinate 125 mg 09/18/19 00:49 09/18/19 01:03 Solu-Medrol 125mg/2ml Vial IV 09/18/19 00:50 Not Given ONCE ONE ORDERS Category Date Time Status Amylase Stat Lab 09/18/19 01:29 Ordered Complete Blood Count Auto Diff Stat Lab 09/18/19 01:29 Ordered Comprehensive Metabolic Panel Stat Lab 09/18/19 01:29 Ordered Lipase Stat Lab 09/18/19 01:29 Ordered Back Pain HPI - General Chief Complaint: Back Pain/Injury Stated Complaint: Abdominal Pain,lower back pain Time Seen by Provider: 09/18/19 00:40 Mode of Arrival: Wheelchair Source of Information: Patient Limitations: Physical Limitations Description of Symptoms (Recalled from ER Triage Doc. by RN): pt stated he was on the toilet when he went to wipe his back starte
--- NOTE | 2019-09-18 01:01 | PC.NURSE ---
pt friend came out to talk to nurse and stated they didnt want any narcotics but just wanted medication to help the pt function. this nurse explained the medications being given to the pt and how they would help the pts muscle spasm and how chronic pain can be be a challenging road to recovery that involves a lot of moving parts including PT, PCP and Pain management and apologized for the pts discomfort.
--- NOTE | 2019-09-18 01:14 | PC.NURSE ---
pt calling out for valium and pain medication to help him sleep tonight.
--- NOTE | 2019-09-18 01:31 | PC.NURSE ---
pt resting with eyes closed in bed
[2019-09-18 01:49] VITALS: BP 168/88; PULSE 68; RESP 14; TEMP 36.3; O2SAT 98
[2019-09-18 02:09] LABS: Basophils % 0.3 % (0.1-2.0); Eosinophils # 0.1 K/mm3 (0.0-0.4); Eosinophils % 0.9 % (0.1-12.0); Hematocrit 44.7 % (42.0-52.0); Hemoglobin 15.3 g/dL (14.1-18.0); Lymphocytes # 2.4 K/mm3 (0.7-4.5); Lymphocytes % 21.2 % (10-50); Mean Corpuscular HGB Conc 34.2 g/dL (31.8-35.4); Mean Corpuscular Hemoglobin 30.8 pg (27.0-31.2); Mean Corpuscular Volume 90.2 fl (80-94); Mean Platelet Volume 7.9 fl (7.4-10.4); Monocytes # 0.5 K/mm3 (0.1-1.0); Monocytes % 4.3 % (1.7-9.3); Neutrophils # 8.3 K/mm3 (1.8-7.8); Neutrophils % 73.3 % (37.0-80.0); Platelet Count 261 K/mm3 (142-424); Red Blood Count 4.95 M/mm3 (4.60-6.20); Red Cell Distribution Width 13.8 % (11.5-17.5); White Blood Count 11.3 K/mm3 (4.8-10.8)
--- NOTE | 2019-09-18 02:10 | PC.NURSE ---
pt was discharged via wheelchair and rolled out to [facility] by this nurse. pt was able to walk without assistance from back of car to passenger side door tolerated well.
[2019-09-18 02:15] LABS: Alanine Aminotransferase 32 U/L (12-78); Albumin Level 4.7 g/dl (3.5-5.0); Albumin/Globulin Ratio 1.4 (1.1-1.8); Alkaline Phosphatase 70 U/L (38-126); Amylase 66 U/L (30-110); Aspartate Amino Transferase 29 U/L (17-59); Bilirubin,Total 0.8 mg/dl (0.2-1.3); Blood Urea Nitrogen 18 mg/dl (9-20); Calcium 10.2 mg/dl (8.4-10.2); Carbon Dioxide 27 mmol/L (22.0-30.0); Chloride 100 mmol/L (98-107); Creatinine Clearance Estimated 197 mL/min (50-200); Estimated Glomerular Filt Rate 145 ml/min (>60); GFR (African American) 176 ML/MIN (>60); Globulin 3.3 g/dL (1.3-3.2); Glucose 124 mg/dl (74-100); Lipase 42 U/L (23-300); Sodium 137 mmol/L (136-145)
== END 2019-09-18 02:08 | disposition home or self-care (01) ==
PROVIDERS: Emergency Provider Emergency Medicine
DX: M54.5 Low back pain (principal); M62.830 Muscle spasm of back; Z87.891 Personal history of nicotine dependence; F12.10 Cannabis abuse, uncomplicated; F19.10 Other psychoactive substance abuse, uncomplicated
CPT/HCPCS: 80053; 82150; 83690; 85025; 96365; 96375; 99282

== ENCOUNTER → 2019-09-19 15:00 | Outpatient (POV) | payer OTHER, SELFPAY ==
[2019-09-19 15:33] VITALS: BP 167/86; PULSE 82; RESP 18; O2SAT 98; BMI 27.1
--- NOTE | 2019-09-19 15:54 | HMH.PAINSOAP ---
[facility] Pain Management SOAP Note Subjective:: Patient is a 44-year-old white male who presents today for follow-up after a thoracic epidural at T11-T12 along with a left SI injection. Patient says he is continuing to have abdominal pain. He says that he has been informed by Dr. Cote that his pain is radiating from his back, however, the patient says that it is mostly low abdominal pain that is causing him to have nausea and vomiting. He also reports to be having continuing muscle spasms into his low back area. Patient says that he has tried taking Flexeril along with Zanaflex with no relief. He has been to the emergency room on 3 occasions since being discharged. Patient says he is not getting any relief. He feels that it is more GI symptom related rather than back pain. He says that he has not had any relief since being hospitalized. He says that the injections gave him 0% relief. He rates his pain a 7 out of 10 today. Patient says that he would like to follow-up with someone who can discuss his GI symptoms. Review of Systems General: No recent weight changes, no fever, no sleep disturbances Respiratory: No cough, no shortness of air, no recurring pulmonary infections Cardiovascular/peripheral vascular: No chest pain, no palpitations, no edema, no shortness of breath Gastrointestinal: No new onset incontinence, normal bowel movements reported, complaints of left lower quadrant and right lower quadrant abdominal pain, denies any melena Genitourinary: No new onset incontinence Musculoskeletal: Muscle spasms to low back Psychiatric: Normal mood/affect Neurological: [Denies weakness in extremities], [denies balance issues] Objective:: Physical exam General: Alert and oriented x3, no acute distress, pleasant and cooperative, [on room air] Lungs: Respirations even and unlabored, symmetrical chest expansion Eyes: PERRL Musculoskeletal: deep tendon reflexes normal, strength in upper and lower extremities [5/5], normal gait noted Neurological: Speech clear, workers compensation adjuster equal, no gross sensory deficit Assessment:: Degenerative disc 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 Washington today regarding the patient's symptoms. I also discussed with Dr. Washington that the patient did not get any relief with the thoracic epidural steroid injection as well as the SI injection. The patient has requested to follow-up with a spool hauler. I have encouraged him to contact his primary care provider's office in the a.m. to seek referral for his new GI symptoms. Patient does report during the conversation today that he has continued to have GI symptoms since being in the hospital. Patient says he has been told, however, that it is directly related to his back. Patient would like to follow-up with us in a month after seeing GI to discuss a further plan of care. He does not feel that the injections have given him any relief. We did discuss the possibility of muscle relaxers for the spasms in his low back, however, patient is not interested in any muscle relaxers. He says he has approximately 12-13 bottles of muscle relaxers at home and they are not beneficial for his pain. We will follow-up with him in a month to reassess his symptoms after he has followed up with GI. He has been instructed to contact clinic if he has any concerns before his next appointment. The patient and I specifically discussed risk factors for COVID19. These risks include, but are not limited to age greater than 60, heart or lung disease, diabetes, immunosuppression, and travel. We also discussed NSAIDs may worsen COVID19 infection or symptoms. Patient should not use NSAIDs to treat COVID19 signs or symptoms. Patient was also informed that any type of corticosteroid of any form (oral or injection) will decrease the patient's immune system response and may increase the likelihood of COVID19 infection [address] symptoms[address]. Washington has r
== END ==
PROVIDERS: Visit Provider Clinical Nurse Specialist Family Health
DX: M51.36 Other intervertebral disc degeneration, lumbar region (principal); M46.1 Sacroiliitis, not elsewhere classified; M51.24 Other intervertebral disc displacement, thoracic region
CPT/HCPCS: 99212

== ENCOUNTER 2019-09-20 13:30 | Outpatient (RCR) | payer OTHER, SELFPAY ==
--- NOTE | 2019-09-05 11:18 | HMH.PTOPEV ---
PT Outpatient Evaluation Rehab PT Outpatient Evaluation Start: 09/05/19 10:16 Freq: Status: Active Protocol: Document 09/05/19 10:39 LIZETH (Rec: 09/05/19 11:18 LIZETH [id number]) Electronically Signed By Ganesh Stone, PT 09/05/19 10:39 Outpatient Therapy Subjective History Subjective History Pt reports insidious onset LBP beginning ~2 weeks. Pt reports constant and severe midline lower thoracic-lumbar spine region pain, no radicular s/s. MRI has revealed disc protrusion @T11- 12. pt self-employed in construction-high level return to work Chief Complaint Pain,Spasms,Stiff Symptom Type Ache,Sharp,Dull,Stabbing Symptoms Relieved By Rest/Positioning,Heat Symptoms Aggravated By Standing,Walking Prior Functional Limitations None Current Functional Limitations Lifting,Housework,Standing, Sitting,Walking,Bending/ Stooping Symptom Description Constant and Continuous Level of pain today (0-10) 9 Pain scale - at its best (0-10) 9 Pain scale - at its worst (0-10) 10 Lumbopelvic Eval Posture Thoracic Spine Posture Standing Position Flattened Lumbar Spine Posture Standing Position Flattened Palapation tenderness bilateral thoracic spinal tenderness Yes: 3/4 lumbar spinal tenderness Yes: 3/4 paraspinal tenderness Yes: 3/4 Lumbar/Sacral Palpation Findings Tenderness,Spasm,Trigger Point ,Muscle Guarding Accessory Movement T-spine Vertebrae Accessory Movements Central P/A [place] that Elicit Symptoms T11 bilateral T12 bilateral L-spine Vertebrae Accessory Movements Central P/A [place] that Elicit Symptoms L2 bilateral L3 bilateral Range of Motion Lumbar Spine Active Flexion Range of 0-70 Motion (degrees) Lumbar Spine Active Extension Range of 0-15 Motion (degrees) Left Lumbar Spine Lateral Flexion Active 0-30 Range of Motion (degrees) Right Lumbar Spine Lateral Flexion 0-20 Active Range of Motion (degrees) Lumbar Spine ROM Limitations Pain Manual Muscle Test Bilateral Knee Extension Strength Grade 5 Normal Knee Flexion Strength Grade 5 Normal Hip Flexion Strength Grade 5 Normal Extensor Hallucis Longus Strength Grade 5 Normal Ankle Dorsiflexion Strength Grade 5 Normal Gastronemius/Soleus Strength Grade
== END 2019-09-20 13:35 | disposition home or self-care (01) ==
LOC: PT 13:30
PROVIDERS: Visit Provider Internal Medicine Adolescent Medicine
DX: M54.5 Low back pain (principal); M54.6 Pain in thoracic spine
CPT/HCPCS: 97010; 97012; 97014; 97110; 97163; G0283

== ENCOUNTER 2019-11-11 13:33 | Emergency (ER) | payer OTHER, SELFPAY ==
[2019-11-11 14:15] VITALS: BP 124/76; PULSE 76; RESP 19; TEMP 36.6; O2SAT 98; BMI 27.1
--- NOTE | 2019-11-11 14:24 | HMH.EDUTC ---
[facility] [place] Disposition Clinical Impression: Poison lillian dermatitis Disposition: Home, Self-Care Condition on Discharge: Good Instructions: Poisonous Plants: [place], [place], and [place]: Beware the Oils, Poison [place]illian, Poison [place], Poison [place] Additional Instructions: void contact with the offending substance (poison lillian). Don't start the oral steroids until tomorrow. Don't put the topical steroids (triamcinolone) on your face or your groin. Follow up with your regular doctor. GO TO THE ER FOR ANY WORSENING SYMPTOMS OR CONCERNS Prescriptions: methylPREDNISolone [Medrol] 4 mg PO DIRECTED 6 Days #21 tab.ds.pk Transmission Status: Received by [facility] Triamcinolone Acetonide 1 applicatio TP TIDP PRN 7 Days #1 tube PRN Reason: Itching Transmission Status: Received by [facility] Referrals: PCP,No [Primary Care Provider] - Forms: Work/School Release Time of Disposition: 14:29 Medical Decision Making - Medical Records Medical records reviewed: No: I reviewed the patient's medical records. - Fernie Inquiry Pt receiving controlled substance: No Vital Signs: 11/11/19 14:15 11/11/19 14:50 Temperature 97.8 F 97.8 F Temperature Source Oral Pulse Rate 76 Pulse Rate [Right Brachial] 76 Respiratory Rate 19 19 Blood Pressure 124/76 Blood Pressure [Right Arm] 124/76 Blood Pressure Mean [Right Arm] 92 Blood Pressure Source [Right Arm] Automatic Cuff Blood Pressure Position [Right Arm] Sitting 02 Sat by Pulse Oximetry 98 Oxygen Delivery Method Room Air Orders (Tests/Meds): ED MEDICATIONS Discontinued Medications Generic Name Dose Route Start Last Admin Trade Name Freq PRN Reason Stop Dose Admin Methylprednisolone Sodium Succinate 125 mg 11/11/19 14:24 11/11/19 14:30 Solu-Medrol 125mg/2ml Vial IM 11/11/19 14:25 125 mg ONCE ONE Administration [facility] [place] HPI - General Stated complaint: poison lillian Time Seen by Provider: 11/11/19 14:20 Mode of Arrival: Ambulatory Source of Information: Patient Limitations: No Limitations Description of Symptoms (Recalled from Triage Doc. by RN): PATIENT C/O POISON LILLIAN X 4 DAYS HEENT Symptoms (Recalled from RN notes): No Resp Symptoms (Recalled from RN notes): No Skin Symptoms (Recalled from RN notes): Yes MS Symptoms (Recalled from RN notes): No Functional Status (Recalled from RN notes): WNL - History of Present Illness Provider Complaint: He c/o having poison lillian on his almost entire body from his neck down. He states that several days ago he was working outside in weeks and came into contact with poison lillian. - Related Data Home Medications Medication Instructions Recorded Confirmed Gabapentin [Neurontin 300mg 300 mg PO TID 09/16/19 09/16/19 capsule] Previous Rx's Medication Instructions Recorded Ondansetron [Zofran 4mg ODT] 4 mg PO Q8H PRN 2 Days #6 09/16/19 tab.rapdis Cyclobenzaprine HCl [Flexeril 10mg 10 mg PO Q8HP PRN 30 Days #90 tab 09/18/19 tablet] Diclofenac Sodium [Voltaren 100gm 1 applicatio TP Q4-6H PRN #100 gm 09/18/19 Topical Gel] methylPREDNISolone [Medrol 4mg 4 mg PO DIRECTED #21 tab 09/18/19 tab] Triamcinolone Acetonide 1 applicatio TP TIDP PRN 7 Days #1 11/11/19 tube methylPREDNISolone [Medrol] 4 mg PO DIRECTED 6 Days #21 11/11/19 tab.ds.pk Allergies Allergy/AdvReac Type Severity Reaction Status Date / Time No Known Allergies Allergy Verified 08/20/18 21:44 - Worker's Comp Is this a Worker's Comp case?: No [facility] History - Hepatitis A Screen Drug use history?: No High risk sexual behaviors?: No History of sexually transmitted infection?: No Currently employed?: No Childcare worker?: No Do you have indoor plumbing?: Yes Do you have electricity?: Yes Attestation statement:: This patient has been screened for Hepatitis A risk factors. I have reviewed the patient's past medical history: Yes Medical History: Denies:: Canc
[2019-11-11 14:50] VITALS: BP 124/76; PULSE 76; RESP 19; TEMP 36.6; O2SAT 98
== END 2019-11-11 14:51 | disposition home or self-care (01) ==
PROVIDERS: Emergency Provider Nurse Practitioner Family
DX: L23.7 Allergic contact dermatitis due to plants, except food (principal); Z87.891 Personal history of nicotine dependence
CPT/HCPCS: 96372; 99201

== ENCOUNTER 2021-09-23 09:57 | Emergency (ER) | payer OTHER, SELFPAY ==
[2021-09-23 10:07] VITALS: BP 141/67; PULSE 60; RESP 17; TEMP 36.6; O2SAT 96; BMI 32.1
--- NOTE | 2021-09-23 10:20 | HMH.EDUTC ---
[facility] [place] Clinical Impression: Poison toña dermatitis Disposition: Home, Self-Care Condition on Discharge: Good Instructions: DI for Poison Toña Allergy Additional Instructions: Avoid contact with the offending substance (poison toña). Don't start the oral steroids until tomorrow. Don't put the topical steroids (triamcinolone) on your face or your groin. Follow up with your regular doctor. GO TO THE ER FOR ANY WORSENING SYMPTOMS OR CONCERNS Take benedryl regularly for the next few days, but don't drive or operate heavy machinery after taking it. Prescriptions: methylPREDNISolone [Medrol] 4 mg PO DIRECTED 6 Days #21 packet Transmission Status: Pending to [facility] Triamcinolone Acetonide 1 applicatio TP TIDP PRN 7 Days #1 gm PRN Reason: Itching Transmission Status: Pending to [facility] Referrals: Provider,Referral, MD [Primary Care Provider] - Time of Disposition: 10:36 Medical Decision Making - Medical Records Medical records reviewed: No: I reviewed the patient's medical records. - Fernie Inquiry Pt receiving controlled substance: No Vital Signs: 09/23/21 10:07 Temperature 98 F Temperature Source Oral Pulse Rate [Left Radial] 60 Respiratory Rate 17 Blood Pressure [Right Arm] 141/67 H Blood Pressure Mean [Right Arm] 91 02 Sat by Pulse Oximetry 96 Oxygen Delivery Method Room Air Orders (Tests/Meds): ED MEDICATIONS Generic Name Dose Route Start Last Admin Trade Name Freq PRN Reason Stop Dose Admin Methylprednisolone Sodium Succinate 125 mg 09/23/21 10:26 Methylprednisolone Sod Succ 125mg Vial IM 09/23/21 10:27 ONCE ONE [facility] [place] - General Stated complaint: poison toña Time Seen by Provider: 09/23/21 10:20 Mode of Arrival: Ambulatory Source of Information: Patient Limitations: No Limitations Description of Symptoms (Recalled from Triage Doc. by RN): pt to [facility] c/o generalized poison toña. pt states he first noticed it x2 days ago. HEENT Symptoms (Recalled from RN notes): No Resp Symptoms (Recalled from RN notes): No Skin Symptoms (Recalled from RN notes): Yes MS Symptoms (Recalled from RN notes): No Functional Status (Recalled from RN notes): na - History of Present Illness Provider Complaint: He c/o having a poising toña rash on his face, groin, both legs and arms for the past 2 days. - Related Data Home Medications Medication Instructions Recorded Confirmed Gabapentin [Neurontin 300mg 300 mg PO TID 09/16/19 09/16/19 capsule] Previous Rx's Medication Instructions Recorded Ondansetron [Zofran 4mg ODT] 4 mg PO Q8H PRN 2 Days #6 09/16/19 tab.rapdis Cyclobenzaprine HCl [Flexeril 10mg 10 mg PO Q8HP PRN 30 Days #90 tab 09/18/19 tablet] Diclofenac Sodium [Voltaren 100gm 1 applicatio TP Q4-6H PRN #100 gm 09/18/19 Topical Gel] methylPREDNISolone [Medrol 4mg 4 mg PO DIRECTED #21 tab 09/18/19 tab] Triamcinolone Acetonide 1 applicatio TP TIDP PRN 7 Days #1 11/11/19 tube methylPREDNISolone [Medrol] 4 mg PO DIRECTED 6 Days #21 11/11/19 tab.ds.pk Triamcinolone Acetonide 1 applicatio TP TIDP PRN 7 Days #1 09/23/21 gm methylPREDNISolone [Medrol] 4 mg PO DIRECTED 6 Days #21 09/23/21 packet Allergies Allergy/AdvReac Type Severity Reaction Status Date / Time No Known Allergies Allergy Verified 08/20/18 21:44 - Worker's Comp Is this a Worker's Comp case?: No [facility] History - Hepatitis A Screen Attestation statement:: This patient has been screened for Hepatitis A risk factors. I have reviewed the patient's past medical history: Yes Medical History: Denies:: Cancer, Diabetes Mellitus Type 1, Diabetes Mellitus Type 2, Gall Bladder Disease, Gastroesophageal Reflux Disease(GERD), Gastrointestinal Bleed, Hiatal Hernia, Kidney Stones, MRSA, Seizures, Ulcer Other Surgeries: Yes: No Previous Surgery Amputation: No Fractures: No - Social History Smoking
[2021-09-23 10:45] VITALS: BP 133/60; PULSE 65; RESP 98; TEMP 36.6
== END 2021-09-23 10:46 | disposition home or self-care (01) ==
PROVIDERS: Emergency Provider Nurse Practitioner Family
DX: L23.7 Allergic contact dermatitis due to plants, except food (principal)
CPT/HCPCS: 96372; 99212; G0463

== ENCOUNTER 2024-08-26 10:53 | Outpatient (CLI) | payer OTHER, SELFPAY ==
[2024-08-26 18:45] LABS: Basophils # 0.1 K/mm3 (0-0.2); Basophils % 1.5 % (0.1-2.0); Eosinophils # 0.4 Kmm3 (0.0-0.4); Eosinophils % 6.5 % (0.1-12.0); Hematocrit 40.7 % (42.0-52.0); Hemoglobin 14.3 g/dL (14.1-18.0); Immature Granulocytes # 0.04 10^3uL; Immature Granulocytes % 0.7 %; Lymphocytes # 1.8 K/mm3 (0.7-4.5); Lymphocytes % 34.3 % (10-50); Mean Corpuscular HGB Conc 35.1 g/dL (31.8-35.4); Mean Corpuscular Hemoglobin 30.4 pg (27.0-31.2); Mean Corpuscular Volume 86.4 fl (80-94); Mean Platelet Volume 10.5 fl (7.4-10.4); Monocytes # 0.4 K/mm3 (0.1-1.0); Monocytes % 8.2 % (1.7-9.3); Neutrophils # 2.6 K/mm3 (1.8-7.8); Neutrophils % 48.8 % (37.0-80.0); Nucleated Red Blood Cells # 0 10^3/uL; Nucleated Red Blood Cells % 0 %; Platelet Count 197 K/mm3 (142-424); Red Blood Count 4.71 M/mm3 (4.60-6.20); Red Cell Distribution Width-SD 38.2 fL; White Blood Count 5.4 K/mm3 (4.8-10.8)
[2024-08-26 19:22] LABS: Alanine Aminotransferase 43 U/L (12-78); Albumin Level 4.3 g/dl (3.5-5.0); Albumin/Globulin Ratio 1.6 (1.1-1.8); Alkaline Phosphatase 60 U/L (38-126); Amylase 63 U/L (30-110); Anion Gap 8.3 mEq/L (5-15); Aspartate Amino Transferase 41 U/L (17-59); Bilirubin,Total 0.5 mg/dl (0.2-1.3); Blood Urea Nitrogen 13 mg/dl (9-20); Calcium 10.2 mg/dl (8.4-10.2); Carbon Dioxide 26 mmol/L (22.0-30.0); Chloride 106 mmol/L (98-107); Chol/HDL Ratio 4.9 (1-3.5); Cholesterol 176 mg/dl (140-200); Estimated Glomerular Filt Rate 119 ml/min (>60); GFR (African American) 144 ML/MIN (>60); Globulin 2.7 g/dL (1.3-3.2); Glucose 124 mg/dl (74-100); HDL Cholesterol 36 mg/dl (40-60); Lipase 64 U/L (23-300); Potassium 4.3 mmoL/L (3.5-5.1); Sodium 136 mmol/L (136-145); Triglycerides 262 mg/dl (30-150); VLDL Cholesterol 52 mg/dL (0-40)
[2024-08-26 19:32] LABS: Direct LDL Cholesterol 85.86 mg/dL (100-129)
[2024-08-26 19:37] LABS: 25-OH Vitamin D, Total 26.2 ng/mL (30-100)
[2024-08-26 19:55] LABS: Prostate Specific Ag Screen 0.3 ng/ml (0.0-4.0); Thyroid Stimulating Hormone 1.73 uIU/mL (0.465-4.68)
[2024-08-26 20:00] LABS: HIV Combo NEGATIVE (Negative)
[2024-08-26 20:10] LABS: Hepatitis C Ab Qual. W/ RFX NEGATIVE (Negative)
[2024-08-27 09:52] LABS: Hemoglobin A1C 6.8 % (4.0-6.0)
[2024-08-28 05:10] LABS: Hepatitis B Surface Antigen Negative (Negative)
[2024-08-28 08:28] LABS: Testosterone,Total 461 ng/dL (264-916)
[2024-09-10 05:08] LABS: Testosterone, Total, LC/MS 427 ng/dL (.)
== END 2024-08-26 23:59 | disposition home or self-care (01) ==
LOC: LAB.DROPOF 08-28 10:54
PROVIDERS: PCP Family Medicine; Visit Provider Family Medicine
DX: Z00.00 Encounter for general adult medical examination without abnormal findings (principal); R53.83 Other fatigue; R10.9 Unspecified abdominal pain; Z11.59 Encounter for screening for other viral diseases; Z76.89 Persons encountering health services in other specified circumstances
CPT/HCPCS: 80053; 80061; 80074; 82150; 82306; 83036; 83690; 84403; 84443; 85025; 87340; 87389; G0103

== ENCOUNTER 2024-08-27 09:59 | Outpatient (CLI) | payer OTHER, SELFPAY ==
[2024-08-28 08:28] LABS: Testosterone,Total 599 ng/dL (264-916)
== END 2024-08-27 23:59 | disposition home or self-care (01) ==
LOC: LAB 09:59
PROVIDERS: PCP Family Medicine; Visit Provider Family Medicine
DX: R68.82 Decreased libido (principal); R53.83 Other fatigue
CPT/HCPCS: 36415; 84403

== ENCOUNTER 2024-11-25 11:01 | Outpatient (CLI) | payer OTHER, SELFPAY ==
--- OUTSIDE RECORDS SUMMARY | 2008-05-03 20:00 | XMS_ITS | Continuity of Care Document ---
Author Organization [facility] Address [address] [place] [address] Phone Care Team Providers Care Threader Operator Name Role Phone CONV, [facility] Unavailable Unavailable Advance Directives Directive Yes / No Effective Date File Name No Information Encounters Encounter Description Practice Location Reason(s) For Visit Diagnoses Date Provider Providers Copied on Encounter [facility] /[facility], [address] [place] [address], [place], tel:[phone] Z [facility]D CONV No Information CONV [facility]. [address] [place] [address], [place], . Family History Family Member Type Diagnosis Age At Onset No Information Immunizations Vaccine Date Status Comments ORAL POLIO administered Source: New Imm unization Record TD, TETANUS-DIPHTHERIA administered [facility] e: New Immunization Record [id number], PED/ADL administered Source: New Immuniza tion Record Payers Payer name Insurance type Covered alliance party ID Authoriza tion(s) No Information Social History Type Description Quantity Date Captured Comments Sex Male Smoking Status No Information Chief Complaint And Reason For Visit No Information History Of Present Illness Encounter Date Complaint History Of Prese nt Illness No Information Instructions Date Instruction Additional Infor mation No Information Assessments Type Assessment Date No Information Patient Care Teams Name Effective Dates (start - stop) Status Members No Information
[2024-11-25 11:07] LABS: Microscopic, Urine URINE MICROSCOPIC (MICROSCOPIC)
[2024-11-25 13:01] LABS: Blood Urea Nitrogen 13 mg/dl (9-20); Creatinine,Serum 0.60 mg/dl (0.66-1.25); Estimated Glomerular Filt Rate 142 ml/min (>60); GFR (African American) 172 ML/MIN (>60)
[2024-11-25 13:49] LABS: Bilirubin,Urine Negative (Negative); Color,Urine YELLOW (Yellow); Glucose,Urine (UA) Negative (Negative); Ketones,Urine Negative (Negative); Leukocyte Esterase,Urine Negative (Negative); PH,Urine 6.0 (5.0-8.5); Protein,Urine Negative (Negative); Specific Gravity, Urine 1.015 (1.005-1.030); Urobilinogen,Urine 0.2 EU/dl (0.2)
[2024-11-25 14:37] LABS: Squamous Epithelial Cell,Urine Occasional #/hpf (0-5); WBC,Urine Occasional #/hpf (0-3)
[2024-11-26 08:40] LABS: PSA, Free 0.37 ng/mL
== END 2024-11-25 23:59 | disposition home or self-care (01) ==
LOC: LAB 11:01
PROVIDERS: Visit Provider Urology
DX: N40.1 Benign prostatic hyperplasia with lower urinary tract symptoms (principal); N52.9 Male erectile dysfunction, unspecified; R10.9 Unspecified abdominal pain
CPT/HCPCS: 36415; 81001; 82565; 84153; 84154; 84520; 87086

== ENCOUNTER 2024-11-28 12:30 | Outpatient (CLI) | payer OTHER, SELFPAY ==
--- OUTSIDE RECORDS SUMMARY | 2008-05-03 20:00 | XMS_ITS | Continuity of Care Document ---
Author Organization [facility] Address [address] [place] [address] Phone Care Team Providers Care Leadership Program Associate Name Role Phone CONV, [facility] Unavailable Unavailable Advance Directives Directive Yes / No Effective Date File Name No Information Encounters Encounter Description Practice Location Reason(s) For Visit Diagnoses Date Provider Providers Copied on Encounter [facility] /[facility], [address] [place] [address], [facility], tel:[phone] Z [facility] CONV No Information CONV [facility]. [address] [place] [address], [facility] [place], . Family History Family Member Type Diagnosis Age At Onset No Information Immunizations Vaccine Date Status Comments ORAL POLIO administered Source: New Imm unization Record TD, TETANUS-DIPHTHERIA administered [facility] e: New Immunization Record [id number], PED/ADL administered Source: New Immuniza tion Record Payers Payer name Insurance type Covered democrat ID Authoriza tion(s) No Information Social History [...]
--- NOTE | 2024-11-28 | CA_ITS ---
APPROVED REPORT Exam: Pharmacologic Technologist: Emma Gongora Ht: 6 ft 1 in Wt: 223 lbs BSA: 2.25 m2 HR: 49 bpm BP: 122/86 mmHg Rhythm: sinus bradycardia Medical History Cardiac Risk Factors: Smoking Stress Test Details HR Resting HR: 49 bpm Max Heart Rate (APMHR): 169.948271 bpm Target HR (85% APMHR): 143.870482 bpm Recovery HR: 54 bpm BP Resting BP: 122.0/86.0 mmHg Recovery BP: 128.0/89.0 mmHg ECG Resting ECG: Sinus bradycardia Stress ECG Conclusion During lexiscan pt experinced nausea. PAC noted. Less than .5mm upsloping segment changes. Nondiagnostic ECG/lexiscan. Electronically signed by : Heather Brown MD 12/02/2024 12:09:47
--- NOTE | 2024-11-28 12:30 | NM_ITS ---
APPROVED REPORT Exam: Nuclear Stress Test Indication: fm hx, c.p., sob, palpitations, fatigue Patient Location: Outpatient Stress Tech: Emma SANDHU Tech:MARIJA Kahn RT(R)(N) Ht: 6 ft 1 in Wt: 240 lbs HR: 50 bpm BP: 122/86 mmHg BSA: 2.33 m2 TID: 1.16 BMI: 31.6 History: fm hx, c.p., sob, palpitations, fatigue Procedure: Patient received 0.4 mg of intravenous Lexiscan, resting heart rate 50 bpm, resting blood pressure 120/86 mmHg, with Lexiscan maximum heart rate achieved was 60 bpm which is % of the maximum predicted heart rate and blood pressure was 137/61 mmHg. With Lexiscan, patient denied any complaint of chest pain. Cardiac Stress and Resting SPECT Images: Cardiac Stress and Resting SPECT images were obtained using technetium 99m Myoview 32.9 mCi stress and 10.20 mCi at rest. Raw images demonstrate significant soft tissue overlap with the cardiac borders. This may affect the diagnostic interpretation of the study findings. Resting and stress imaging in supine positions demonstrate a small sized, mild, tapered perfusion defect in the basal inferior LV wall. This is no longer visualized with prone stress imaging. Findings are suggestive of diaphragmatic attenuation. Gated imaging demonstrates mild reduction in LV systolic function. LVEF is calculated at 48%. Conclusion: Diaphragmatic attenuation is present. No evidence of fixed or reversible perfusion defects. Gated imaging demonstrates mild reduction in LV systolic function. LVEF is calculated at 48%. Electronically signed by : Heather Brown MD 12/02/2024 11:52:34
[2024-11-28 13:35] VITALS: BP 122/86; PULSE 49; RESP 14
[2024-11-28] MEDS: ISOTOPE MYOVIEW (PER STUDY) 1 DOSE IV (13:45)
[2024-11-28] MEDS: SODIUM CHLORIDE 0.9% 10ML SYR (RAD ONLY) 10 ML IV ×2 (13:45)
--- NOTE | 2024-11-28 15:15 | CA_ITS ---
APPROVED REPORT EXAM: Comprehensive 2D, Doppler, and color-flow Echocardiogram Computer Hardware Technician: Vanessa Centeno, RCS, RVS Ht: 6 ft 1 in Wt: 223lbs BSA: 2.25 BP: 134/80 mmHg Indications: SOB, Family history-CAD 2D Dimensions Aortic Root 2.86 cm LA Volume 50.30 mL Left Atrium 3.53 cm LA Volume Index 22.209327 mL/m2 (M/F) 16-34 RVID Base (AP4) 3.03 cm (M/F) 2.5-4.1 EF AP4 63.80 % LVOT 1.99 cm (M/F) 1.5-2.5 GL Strain -22.6 % M-Mode Dimensions RVDd 2.41 cm (0.9-2.6) LVDd 5.83 cm (3.5-5.7) Ao Diam 3.15 cm (2.0-3.7) LVDs 3.30 cm (3.5-5.7) IVSd 1.33 cm (0.6-1.1) PWd 1.33 cm (0.6-1.1) EF (Teich) 73.80% EPSs 0.73 cm FS 43.40% EDV (Teich) 168.50 mL TAPSE 1.57 (<1.7) ESV (Teich) 44.10 mL LV Diastology E Decel Time 200 (160-240 msec) E/A Ratio 1.42 MED E' 9.7 (>= 7 cm/sec) MED A' 11.00 cm/s E'/MED E' Ratio 10.59 (<= 14) LAT E' 13.1 (>= 10 cm/sec) LAT A' 7.80 cm/s E/LAT E' Ratio 7.84 (<= 14) Aortic Valve LVOT Max 127.0 (70-110 cm/s) STEVEN Index 1.03 cm2/m2 LVOT VTI 31.18 cm AoV Peak Lionel. 172.0 (50-130 cm/s) AO Mean GR. 5.90 (<5 mmHg) AO VTI 41.9 (18-25 cm) STEVEN (VTI) 2.31 (2.5-4.5 cm2) Mitral Valve MV E Max Lionel. 103.0 (40-130 cm/s) MV A Velocity 73.0 (40-130 cm/s) E/A Ratio 1.42 MV Decel. Time 200 (160-240 ms) Tricuspid Valve TR P. Velocity 218.00 cm/s RAP Estimate 10.00 mmHg RVSP 29.00 mmHg Left Ventricle The left ventricle is normal size. Left ventricular systolic function is mildly reduced. There is normal left ventricular wall thickness. There is mild global hypokinesis present. Grade 1 diastolic dysfunction is present. LVEF is 45-50% Right Ventricle The right ventricle is mildly dilated. The right ventricular systolic function is normal. Atria The left atrium is mildly dilated. The right atrium is mildly dilated. There is no color Doppler evidence of interatrial shunt. Aortic Valve The aortic valve is mildly thickened. There is no hemodynamically significant aortic valvular stenosis. Trace aortic regurgitation is present. Mitral Valve The mitral valve is normal in structure. No evidence of mitral valve stenosis. Mild mitral regurgitation is present. Tricuspid Valve The tricuspid valve leaflets are thin and pliable. Mild tricuspid regurgitation. RVSP is 20-25 mmHg. Pulmonic Valve The pulmonary valve is grossly normal in structure. Mild pulmonic valve regurgitation is present. Great Vessels The aortic root is normal in size. IVC is normal in size and collapses >50% with inspiration. Pericardium There is no pericardial effusion. Other Information Study Quality: Fair Conclusion Mildly reduced LV systolic function (LVEF 45-50%). Mild RV dilation with normal RV function. Biatrial dilation. Mild MR, mild TR, mild PI. Electronically signed by : Heather Brown MD 12/02/2024 11:54:18
== END 2024-11-28 23:59 | disposition home or self-care (01) ==
LOC: RAD 12:30
PROVIDERS: PCP Family Medicine; Visit Provider Family Medicine
DX: I08.8 Other rheumatic multiple valve diseases (principal); R00.1 Bradycardia, unspecified; I49.1 Atrial premature depolarization; I20.89 Other forms of angina pectoris; R94.31 Abnormal electrocardiogram [ECG] [EKG]; R68.89 Other general symptoms and signs; Z87.891 Personal history of nicotine dependence; Z82.49 Family history of ischemic heart disease and other diseases of the circulatory system
CPT/HCPCS: 78452; 93017; 93018; 93306; A9502; J2785

== ENCOUNTER 2024-12-02 15:34 | Outpatient (CLI) | payer OTHER, SELFPAY ==
--- NOTE | 2024-12-02 15:30 | CT_ITS ---
FINAL REPORT TECHNIQUE: Axial images through the abdomen and pelvis were performed without contrast. This study was performed with techniques to keep radiation doses as low as reasonably achievable, (ALARA). Individualized dose reduction techniques using automated exposure control or adjustment of mA and/or kV according to the patient's size were employed. CLINICAL HISTORY: Right flank pain COMPARISON: 09/16/2019 FINDINGS: Abdomen: The lung bases are clear. There is moderate fatty infiltration of the liver. The gallbladder is contracted. There are calcified granulomas in the spleen. The pancreas, adrenals and kidneys are unremarkable. Pelvis: The appendix is unremarkable. The urinary bladder is incompletely distended. There is no pelvic mass or inflammation. The osseous structures demonstrate a mild diffuse disc bulge at L5-S1 with mild bilateral neuroforaminal narrowing. IMPRESSION: Moderate fatty liver. Contracted gallbladder. Reviewed, Interpreted and Dictated by Raffi Miguel MD Transcribed by Ursula Fay Authenticated and [facility]
--- NOTE | 2024-12-02 15:30 | CT_ITS ---
FINAL REPORT TECHNIQUE: Axial images were obtained from the lung apex to the mid abdomen by computed tomography. This study was performed with techniques to keep radiation doses as low as reasonably achievable (ALARA). Individualized dose reduction techniques using automated exposure control or adjustment of mA and/or kV according to the patient's size were employed. CLINICAL HISTORY: lung cancer screening former smoker x 20 years 1 ppd x 10 years FINDINGS: CHEST CT LOW DOSE CTDI vol (mGy): 2.90 DLP (mGy-cm): 108.38 There is no axillary adenopathy. There is no mediastinal adenopathy. There is densely calcified right hilar lymph nodes. The heart is normal in size. There is no pericardial or pleural effusion. Right middle lobe nodule measures 4 mm on image 54 of series 4. Limited images of the upper abdomen are unremarkable. IMPRESSION: Right middle lobe nodule measures 4 mm. Lung RADS category 2. Recommend 12 month follow-up low-dose chest CT. Reviewed, Interpreted and Dictated by Raffi Miguel MD Transcribed by Ursula Fay Authenticated and [facility]
== END 2024-12-02 23:59 | disposition home or self-care (01) ==
LOC: RAD 15:35
PROVIDERS: PCP Urology; Visit Provider Urology
DX: K76.0 Fatty (change of) liver, not elsewhere classified (principal); K82.0 Obstruction of gallbladder; J84.10 Pulmonary fibrosis, unspecified; Z87.891 Personal history of nicotine dependence; Z12.2 Encounter for screening for malignant neoplasm of respiratory organs; N40.1 Benign prostatic hyperplasia with lower urinary tract symptoms; N52.9 Male erectile dysfunction, unspecified; R91.1 Solitary pulmonary nodule
CPT/HCPCS: 71271; 74176

== ENCOUNTER 2024-12-19 13:57 | Outpatient (CLI) | payer OTHER, SELFPAY ==
--- OUTSIDE RECORDS SUMMARY | 2008-05-03 20:00 | XMS_ITS | Continuity of Care Document ---
Author Organization [facility] Address [address] [place] [address] Phone Care Team Providers Care Aerosol Line Operator Name Role Phone CONV, [facility] Unavailable Unavailable Advance Directives Directive Yes / No Effective Date File Name No Information Encounters Encounter Description Practice Location Reason(s) For Visit Diagnoses Date Provider Providers Copied on Encounter [facility] /[facility], [address] [place] [address], [facility] [place], tel:[phone] Z [facility]D CONV No Information CONV [facility]. [address] [place] [address], [facility] [place], . Family History Family Member Type Diagnosis Age At Onset No Information Immunizations Vaccine Date Status Comments ORAL POLIO administered Source: New Imm unization Record TD, TETANUS-DIPHTHERIA administered [facility] e: New Immunization Record [id number], PED/ADL administered Source: New Immuniza tion Record Payers Payer name Insurance type Covered libertarian ID Authoriza tion(s) No Information Social History [...]
[2024-12-19 14:44] LABS: Chloride 102 mmol/L (98-107); Potassium 4.2 mmoL/L (3.5-5.1); Sodium 140 mmol/L (136-145)
[2024-12-19 14:47] LABS: Anion Gap 15.2 mEq/L (5-15); Blood Urea Nitrogen 15 mg/dl (9-20); Carbon Dioxide 27 mmol/L (22.0-30.0); Creatinine,Serum 0.60 mg/dl (0.66-1.25); Estimated Glomerular Filt Rate 142 ml/min (>60); GFR (African American) 172 ML/MIN (>60)
[2024-12-19 14:48] LABS: Calcium 9.2 mg/dl (8.4-10.2); Glucose 111 mg/dl (74-100)
== END 2024-12-19 23:59 | disposition home or self-care (01) ==
LOC: LAB 13:58
PROVIDERS: PCP Family Medicine; Visit Provider Physician Assistant
DX: I50.20 Unspecified systolic (congestive) heart failure (principal); R94.39 Abnormal result of other cardiovascular function study; R93.1 Abnormal findings on diagnostic imaging of heart and coronary circulation; I42.9 Cardiomyopathy, unspecified
CPT/HCPCS: 36415; 80048; 82565; 84520; 93270

== ENCOUNTER 2025-01-03 10:19 | Outpatient (CLI) | payer OTHER, SELFPAY ==
--- NOTE | 2025-01-03 10:30 | MR_ITS ---
APPROVED REPORT Buckle Frame Shaper: CLINICAL INDICATION HFrEF evaluation TECHNIQUE Image Acquisition: Cardiac magnetic resonance (CMR) was performed on Siemens Espree MRI 1.5T scanner. Software platform sequences were performed using the Siemens [employer] MR B19 platform. A set of three-plane, low-resolution, large [id number] localizers were initially acquired. Then axial, coronal, sagittal TrueFISP, as well as axial HASTE images, were obtained. These were followed by gated TrueFISP breathold cinematic sequences obtained in the short axis with 8 mm slices and 2 mm gaps, 2-chamber (vertical long axis), 3-chamber, 4-chamber (horizontal long axis). A bolus of contrast was injected intravenously with first-pass sequences obtained in the short axis and four-chamber planes. After approximately 10 minutes, a TI pit hoist operator sequence was performed to determine the optimal TI time. Using the optimized TI time, delayed contrast enhancement segmented inversion???recovery TurboFLASH sequences were obtained in the short axis, 2-chamber, 3-chamber, and 4-chamber projections. 2D-velocity phase mapping was performed. Functional parameters were calculated by offline analysis on an independent workstation ([employer] Platform, [employer]). Contrast: ProHance??? (Gadoteridol) FINDINGS MORPHOLOGY AND FUNCTION Left ventricle: The left ventricle is normal in size. The indexed left ventricular end-diastolic volume (LVEDVi) is 74 ml/m2 (reference range 57-105 ml/m2 in males, 56-96 ml/m2 in females). Normal left ventricular systolic function is present. There is normal left ventricular wall thickness. There are no regional wall motion abnormalities noted. LVEF is calculated at 58.8% (reference range 57-77%). Right ventricle: The right ventricle is normal in size. The indexed right ventricular end-diastolic volume (RVEDVi) is 82 ml/m2 (reference range 61-121 ml/m2 in males, 48-112 ml/m2 in females). Low-normal right ventricular systolic function is present. RVEF is calculated at 50.0% (reference range 52-72% in males, 51-71% in females). Atria: The left atrium is normal in size. The maximum indexed left atrial volume is 31 ml/m2 (reference range 26-52 ml/m2 in males, 27-53 ml/m2 in females). The right atrium is normal in size. The maximum indexed right atrial volume is 25 ml/m2 (reference range 18-90 ml/m2). Aorta: The diameter of the aortic annulus is normal, measuring 24 mm (coronal view reference range 21-30 mm in males, 19-27 mm in females). The diameter of the aortic sinus is normal, measuring 28 mm (coronal view reference range 25-42 mm in males, 24-36 mm in females). The diameter of the sinotubular junction is normal, measuring 26 mm (coronal view reference range 18-32 mm in males, 18-28 mm in females). There is borderline dilation of the ascending aorta, measuring 37 mm in diameter. The diameters of the descending thoracic aorta is normal. Main pulmonary artery: The main pulmonary artery is mildly dilated, measuring 37 mm in diameter. Pericardium: The pericardial thickness is normal. The pericardial thickness measures 1.5 mm (normal < 4.0 mm). There is no pericardial effusion. VALVES The valvular morphologies in the visualized sequences appear normal. There is no significant valvular stenosis or regurgitation of the mitral, aortic, tricuspid, or pulmonic valve noted visually. Systolic anterior motion of the mitral valve is not visualized. Ratio of pulmonary to systemic flow, Qp:Qs ratio = 0.8 (normal < or = 1.2, hemodynamically significant shunt > 1.5), demonstrating no evidence of hemodynamically significant shunt. TISSUE CHARACTERIZATION Resting Perfusion: Normal myocardial blood flow at rest. No evidence of resting hypoperfusion. Myocardial Fibrosis and/or edema: Normal gadolinium kinetics are present. No evidence of late gadolinium enhancement is noted, consistent with absence of myocardial scarring, infarction, or necrosis. T2-weighted imaging demonstrates no evidence of myocardial edema or inflammation. OTHER No other significant findings are noted. However, this exam is focused on the cardiac structure and function. IMPRESSION Normal LV size with normal LV systolic function. LVEDVi= 74 ml/m2 and LVEF= 58.8%. Normal RV size with low-normal RV systolic function. RVEDVi= 82 ml/m2 and RVEF= 50.0%. No atrial enlargement. No CMR evidence of myocardial scarring, infarction, or necrosis. No evidence of myocardial edema or inflammation. Perfusion analysis demonstrates normal blood flow at rest with no evidence of resting hypoperfusion. Ratio of pulmonary to systemic flow, Qp:Qs ratio = 0.8 (normal < or = 1.2, hemodynamically significant shunt > 1.5), demonstrating no evidence of hemodynamically significant shunt. Borderline dilated ascending aorta, measuring 37 mm in diameter. The main pulmonary artery is mildly dilated, measuring 37 mm in diameter. Evaluation for pulmonary work-up is suggested. This CMR demonstrates normal biventricular size and systolic function. No evidence of infiltrative or restrictive cardiomyopathy. No evidence of prior fibrosis, scarring, or infarct. Compared to the LVEF from TTE/nuclear stress test, the LVEF on CMR is normal. In the appropriate setting, this possibly reflects functional recovery. COMPARISON None CRITICAL RESULT None COMMUNICATION The above findings were relayed to the patient at the time of the routine outpatient cardiology follow-up visit, prior to dictation of this report. The findings of this cardiac MR were reviewed, reported, and signed by Eric Brown MD ([employer]). Conclusion Electronically signed by : Heather Brown MD 01/23/2025 15:12:06
[2025-01-03] MEDS: 0.9 % SODIUM CHLORIDE 50 ML VIAL 10 ML IV (12:00)
[2025-01-03] MEDS: GADOTERIDOL INJ 20ML SYRINGE 18 ML IV (12:01)
== END 2025-01-03 23:59 | disposition home or self-care (01) ==
LOC: RAD 10:19
PROVIDERS: PCP Family Medicine; Visit Provider Physician Assistant
DX: I28.1 Aneurysm of pulmonary artery (principal); I77.810 Thoracic aortic ectasia; I50.20 Unspecified systolic (congestive) heart failure; R94.39 Abnormal result of other cardiovascular function study; R93.1 Abnormal findings on diagnostic imaging of heart and coronary circulation; I42.9 Cardiomyopathy, unspecified
CPT/HCPCS: 75561; A9576